=== PATIENT | female | born 1995 | race Caucasian/White ===

== ENCOUNTER 2017-04-03 13:30 | Inpatient (IN) | payer OTHER ==
[2017-04-03] MEDS ORDERED: Lidocaine 1% with EPINEPHrine 1:100,000 20 ML MDV ONE (13:38)
[2017-04-03] MEDS ORDERED: Bupivacaine 0.5%/EPINEPHrine 1:200,000 50 ML MDV ONE (13:38)
--- NOTE | 2017-04-03 14:02 | PCM.HP ---
H&P History of Present Illness - General Date of Service: 04/03/17 Source of Information: Patient History Limitations: Reports: No Limitations - History of Present Illness Initial Comments - Free Text/Narative: 21-year-old female presented to her primary care provider with a recent history of vaginal bleeding. For about a week she has had intermittent crampy abdominal discomfort as well as malaise and at times anorexia. She also had some loose watery stools. The pain ultimately migrated to her right lower quadrant where it 's worse with activity. A workup revealed leukocytosis and a CT scan of the abdomen and pelvis revealed imaging features consistent with acute appendicitis with a periappendiceal phlegmon. I was asked to see her in consultation for surgery. - Related Data Allergies/Adverse Reactions: Allergies Allergy/AdvReac Type Severity Reaction Status Date / Time No Known Allergies Allergy Verified 06/17/15 06:47 Home Medications: Home Meds Estradiol Cypionate [Depo-Estradiol] 25 mg IM Q3M 06/17/15 [History] Ondansetron [Zofran] 4 mg BUCCAL Q6H PRN #5 tab 06/17/15 [Rx] oxyCODONE HCl/Acetaminophen [Percocet 5-325 mg Tablet] 1 - 2 each PO Q4H PRN # 24 tablet 06/17/15 [Rx] valACYclovir [Valtrex] 1,000 mg PO BID #6 tab 06/17/15 [Rx] Past Medical History - Past Health History Medical/Surgical History: Denies Medical/Surgical History Social & Family History - Tobacco Use Smoking Status *Q: Never Smoker Second Hand Smoke Exposure: No - Recreational Drug Use Recreational Drug Use: No H&P Review of Systems - Review of Systems: Review Of Systems: ROS reveals no pertinent complaints other than HPI. Exam - Exam Exam: See Below - Vital Signs Weight: 92.079 kg - Exam General: Alert, Oriented, Cooperative HEENT: EOMI, Hearing Intact Neck: Supple, Trachea Midline Lungs: Clear to Auscultation, Normal Respiratory Effort Cardiovascular: Regular Rate, Regular Rhythm, Normal S1, Normal S2 GI/Abdominal Exam: Tender (Female) Exam: Deferred Rectal (Female) Exam: Deferred Back Exam: Normal Inspection Extremities: Normal Inspection Skin: Warm Psychiatric: Alert, Normal Affect, Normal Mood *Q Meaningful Use (ADM) - VTE *Q VTE Criteria *Q: - Stroke *Q Stroke Criteria *Q: - AMI *Q AMI Criteria *Q: Problem List Initiated/Reviewed/Updated: Yes Orders Last 24hrs: Active Orders 24 hr Category Date Time Status Schedule Procedure [COMM] Routine Oth 04/03/17 13:41 Ordered Assessment/Plan Comment:: imp: appendicitis/early phlegmon plan: Laparoscopic possible open appendectomy. If the inflammatory changes are procedurally difficult than I plan to abort the planned procedure and admit her for IV antibiotics. If there is an abscess and I plan on placing a drain and continuing with IV antibiotics. This was explained to her in detail. 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
--- NOTE | 2017-04-03 14:05 | PCM.PREANE ---
Preanesthetic Assessment - Procedure Proposed Procedure: Laparoscopic appendectomy - Anesthesia/Transfusion/Family Hx Anesthesia History: Prior Anesthesia Without Reaction Family History of Anesthesia Reaction: No Transfusion History: No Prior Transfusion(s) - Review of Systems General: No Symptoms Pulmonary: No Symptoms Cardiovascular: No Symptoms Gastrointestinal: No Symptoms Neurological: No Symptoms Other: Reports: None - Physical Assessment NPO Status Date: 04/03/17 NPO Status Time: 12:00 (CT dye ) Pulse: 111 O2 Sat by Pulse Oximetry: 98 Respiratory Rate: 20 Blood Pressure: 126/69 Temperature: 100.0 C Height: 1.68 m Weight: 92.079 kg ASA Class: 2 Mental Status: Alert & Oriented x3 Airway Class: Mallampati = 2 Dentition: Reports: Normal Dentition Thyro-Mental Finger Breadths: 3 Mouth Opening Finger Breadths: 3 ROM/Head Extension: Full Lungs: Clear to Auscultation, Normal Respiratory Effort Cardiovascular: Regular Rate, Regular Rhythm - Allergies Allergies/Adverse Reactions: Allergies Allergy/AdvReac Type Severity Reaction Status Date / Time No Known Allergies Allergy Verified 06/17/15 06:47 - Blood Blood Available: No Product(s) Available: None - Anesthesia Plan Pre-Op Medication Ordered: None - Acknowledgements Anesthesia Type Planned: General Anesthesia Pt an Appropriate Candidate for the Planned Anesthesia: Yes Alternatives and Risks of Anesthesia Discussed w Pt/Guardian: Yes Pt/Guardian Understands and Agrees with Anesthesia Plan: Yes PreAnesthesia Questionnaire - Past Health History Medical/Surgical History: Denies Medical/Surgical History - SUBSTANCE USE Smoking Status *Q: Never Smoker Second Hand Smoke Exposure: No Recreational Drug Use History: No - HOME MEDS Home Medications: Home Meds Estradiol Cypionate [Depo-Estradiol] 25 mg IM Q3M 06/17/15 [History] Ondansetron [Zofran] 4 mg BUCCAL Q6H PRN #5 tab 06/17/15 [Rx] oxyCODONE HCl/Acetaminophen [Percocet 5-325 mg Tablet] 1 - 2 each PO Q4H PRN # 24 tablet 06/17/15 [Rx] valACYclovir [Valtrex] 1,000 mg PO BID #6 tab 06/17/15 [Rx] - CURRENT (IN HOUSE) MEDS Current Meds: Current Medications Discontinued Medications Bupivacaine HCl/Epinephrine Bitart (Marcaine 0.5%/Epinephrine 1:200,000) Confirm Administered Dose 50 ml .ROUTE .STK-MED ONE Stop: 04/03/17 13:39 Dexamethasone (Dexamethasone) Confirm Administered Dose 20 mg .ROUTE .STK-MED ONE Stop: 04/03/17 14:11 Fentanyl (Sublimaze) Confirm Administered Dose 250 mcg .ROUTE .STK-MED ONE Stop: 04/03/17 14:08 Lidocaine HCl (Xylocaine-Mpf 1%) Confirm Administered Dose 4 mls @ as directed .ROUTE .STK-MED ONE Stop: 04/03/17 14:11 Lidocaine/Epinephrine (Xylocaine 1% With Epinephrine 1:100,000) Confirm Administered Dose 20 ml .ROUTE .STK-MED ONE Stop: 04/03/17 13:39 Midazolam HCl (Versed 1 Mg/Ml) Confirm Administered Dose 2 mg .ROUTE .STK-MED ONE Stop: 04/03/17 14:08 Ondansetron HCl (Zofran) Confirm Administered Dose 4 mg .ROUTE .STK-MED ONE Stop: 04/03/17 14:11 Propofol (Diprivan 20 Ml) Confirm Administered Dose 200 mg .ROUTE .STK-MED ONE Stop: 04/03/17 14:08 Rocuronium [place] (Zemuron) Confirm Administered Dose 50 mg .ROUTE .STK-MED ONE Stop: 04/03/17 14:11
[2017-04-03] MEDS ORDERED: Propofol 200 MG/20 ML SDV ONE (14:07)
[2017-04-03] MEDS ORDERED: Midazolam 1 MG/ML 2 ML SDV ONE (14:07)
[2017-04-03] MEDS ORDERED: fentaNYL 250 MCG/5 ML SDV ONE (14:07)
[2017-04-03] MEDS ORDERED: Rocuronium 50 MG/5 ML Vial ONE (14:10)
[2017-04-03] MEDS ORDERED: Ondansetron 4 MG/2 ML SDV ONE (14:10)
[2017-04-03] MEDS ORDERED: Lidocaine 1% 4 ML ONE (14:10)
[2017-04-03] MEDS ORDERED: Dexamethasone 4 MG/ML 5 ML MDV ONE (14:10)
[2017-04-03] MEDS ORDERED: Sodium Chloride 0.9% 10 ML Syringe FLUSH PRN (14:24)
[2017-04-03] MEDS ORDERED: Lidocaine 1%/Sod Bicarbonate in NS 8.4% 1 ML Syringe IV PRN (14:24)
[2017-04-03] MEDS ORDERED: Lactated Ringers 1,000 ML IV SCH ×2 (14:30)
[2017-04-03] MEDS ORDERED: HYDROmorphone 1 MG/ML Syringe ONE (15:04)
[2017-04-03] MEDS ORDERED: fentaNYL 100 MCG/2 ML SDV IVPUSH PRN (15:23)
[2017-04-03] MEDS ORDERED: Meperidine PF 50 MG/ML Syringe IVPUSH PRN (15:23)
[2017-04-03] MEDS ORDERED: diphenhydrAMINE 50 MG/ML SDV IVPUSH PRN (15:23)
[2017-04-03] MEDS ORDERED: Ondansetron 4 MG/2 ML SDV IVPUSH PRN ×2 (15:23→15:54)
[2017-04-03] MEDS ORDERED: Neostigmine Methylsulfate 1 MG/ML 5 ML Syringe ONE (15:48)
[2017-04-03] MEDS ORDERED: Acetaminophen/oxyCODONE 325-5 MG Tab PO PRN (15:54)
--- NOTE | 2017-04-03 15:54 | PCM.OPNOTE ---
- General Post-Op/Procedure Note Date of Surgery/Procedure: 04/03/17 Operative Procedure(s): Laparoscopic appendectomy Findings: Phlegmon chronic inflammatory changes densely adherent omentum to the wall of the body of the appendix and cecum. No perforation. No fecal spillage. No pus seen. Pre Op Diagnosis: Subacute appendicitis with phlegmon Post-Op Diagnosis: Same Anesthesia Technique: General ET Tube, Local Primary Surgeon: Mukund Trejo Pathology: Appendix EBL in mLs: 2 Complications: None Condition: Stable Free Text/Narrative:: After adequate general endotracheal tube anesthesia was obtained the patient's abdomen was prepped and draped sterilely for a laparoscopic appendectomy. After local analgesia was given above the umbilicus a 15 blade was used to make an incision through the skin and then into the subcutaneous tissues. The incision was deepened with scissors down to the midline. A 15 blade was used to make a 12 mm incision through the linea alba. I then inserted a 12 mm camera port then obtained pneumoperitoneum with CO2. A 5 mm working port was placed in the suprapubic region and one in the left lower quadrant. Exploration revealed the findings above. I used the sucker dissection technique to separate the adherent structures from the body and base of the appendix. Once the base was identified I made a window in the appendiceal mesentery with scissors and then fired the linear cutting stapler across the base of the appendix. I then fired 2 loads across the appendiceal mesentery. I irrigated out the right upper and lower quadrants along with the pelvis with 2 L of saline. I decannulated the abdomen under direct vision and there was no bleeding from the port sites. The camera port was closed with a [id number] Vicryl suture. The subcutaneous tissues and skin were closed with Vicryl as well. She tolerated the procedure well and there were no complications. Remote Advisor photographs were taken for the patient and for the medical record.
[2017-04-03] MEDS ORDERED: Ketorolac 30 MG/ML SDV ONE (15:58)
--- NOTE | 2017-04-03 15:58 | PCM.POSTAN ---
POST ANESTHESIA ASSESSMENT - MENTAL STATUS Mental Status: Alert, Oriented - VITAL SIGNS Pulse Rate: 128 SaO2: 98 Resp Rate: 15 Blood Pressure: 124/70 Temperature: 37.5 C - RESPIRATORY Respiratory Status: Respiratory Rate WNL, Airway Patent, O2 Saturation Stable - CARDIOVASCULAR CV Status: Pulse Rate WNL, Blood Pressure Stable - GASTROINTESTINAL GI Status: No Symptoms - PAIN Pain Score: 0 - POST OP HYDRATION Hydration Status: Adequate & Stable
[2017-04-03] MEDS ORDERED: HYDROmorphone 0.5 MG/0.5 ML Syringe IVPUSH PRN (16:25)
[2017-04-03] MEDS: Ketorolac 15 MG/ML SDV IVPUSH PRN (18:12)
[2017-04-03] MEDS: Sodium Chloride 0.9% 1,000 ML IV SCH (18:12)
[2017-04-03] MEDS ORDERED: cefOXitin 2 GM in Sodium Chloride 0.9% 100 ML IV SCH (20:00)
[2017-04-03] MEDS: CEFOXITIN IV SCH (20:24)
[2017-04-03] MEDS: [UNRECOGNIZED DRUG - OTHER] IV SCH (20:24)
[2017-04-04] MEDS: Ketorolac 15 MG/ML SDV IVPUSH PRN (00:05)
[2017-04-04] MEDS: HYDROmorphone 0.5 MG/0.5 ML Syringe IVPUSH PRN ×5 (00:11→21:11)
[2017-04-04] MEDS: CEFOXITIN IV SCH (01:57)
[2017-04-04] MEDS: Sodium Chloride 0.9% 1,000 ML IV SCH (01:57)
[2017-04-04] MEDS: [UNRECOGNIZED DRUG - OTHER] IV SCH (01:57)
--- NOTE | 2017-04-04 07:52 | PCM48HPAN ---
Post Anesthesia Note - EVALUATION WITHIN 48HRS OF ANESTHETIC Vital Signs in Normal Range: Yes Patient Participated in Evaluation: Yes Respiratory Function Stable: Yes Airway Patent: Yes Cardiovascular Function Stable: Yes Hydration Status Stable: Yes Pain Control Satisfactory: Yes Nausea and Vomiting Control Satisfactory: Yes (eating breakfast) Mental Status Recovered: Yes
[2017-04-04] MEDS ORDERED: Sodium Chloride 0.9% 10 ML Syringe FLUSH PRN (07:59)
--- NOTE | 2017-04-04 07:59 | PCM.SURGPN ---
- General Info Date of Service: 04/04/17 POD#: 1 Functional Status: Reports: Pain Controlled, Tolerating Diet, Ambulating, Urinating - Patient Data Vitals - Most Recent: Last Vital Signs Temp 36.3 C 04/04/17 03:57 Pulse 65 04/04/17 03:57 Resp 14 04/04/17 03:57 BP 104/53 L 04/04/17 03:57 Pulse Ox 94 L 04/04/17 03:57 Weight - Most Recent: 94.982 kg I&O - Last 24 Hours: Intake & Output 04/03/17 04/04/17 04/04/17 22:59 06:59 14:59 Intake Total 1440 2900 Output Total 1300 Balance 1440 1600 Lab Results Last 24 Hrs: Laboratory Results - last 24 hr 04/04/17 Range/Units 06:25 WBC 21.45 H (3.98-10.04) K/mm3 RBC 4.32 (3.98-5.22) M/mm3 Hgb 12.7 (11.2-15.7) gm/L Hct 39.3 (34.1-44.9) % MCV 91.0 (79.4-94.8) fl MCH 29.4 (25.6-32.2) pg MCHC 32.3 (32.2-35.5) g/dl RDW Std Deviation 42.0 (36.4-46.3) fL Plt Count 221 (182-369) K/mm3 MPV 9.8 (9.4-12.3) fl Neut % (Auto) 86.0 H (34.0-71.1) % Lymph % (Auto) 6.3 L (19.3-51.7) % [place] % (Auto) 7.5 (4.7-12.5) % Eos % (Auto) 0 L (0.7-5.8) Baso % (Auto) 0.0 L (0.1-1.2) % Neut # (Auto) 18.43 H (1.56-6.13) K/mm3 Lymph # (Auto) 1.36 (1.18-3.74) K/mm3 [place] # (Auto) 1.61 H (0.24-0.36) K/mm3 Eos # (Auto) 0.00 L (0.04-0.36) K/mm3 Baso # (Auto) 0.00 L (0.01-0.08) K/mm3 Manual Slide Review Abnormal smear Med Orders - Current: Current Medications Diphenhydramine HCl (Benadryl) 25 mg IVPUSH Q6H PRN PRN Reason: Pruritis Hydromorphone HCl (Dilaudid) 0.5 mg IVPUSH Q1H PRN PRN Reason: Pain (severe 7-10) Last Admin: 04/04/17 04:09 Dose: 0.5 mg Sodium Chloride (Normal Saline) 1,000 mls @ 125 mls/hr IV ASDIRECTED STELLA Last Admin: 04/04/17 01:57 Dose: 125 mls/hr Cefoxitin Sodium 2 gm/ Premix 50 mls @ 100 mls/hr IV Q6H [facility] Ketorolac Tromethamine (Toradol) 15 mg IVPUSH Q6H PRN PRN Reason: Pain Stop: 04/04/17 10:01 Last Admin: 04/04/17 00:05 Dose: 15 mg Ondansetron HCl (Zofran) 4 mg IVPUSH Q6H PRN PRN Reason: Nausea/Vomiting Oxycodone/Acetaminophen (Percocet 325-5 Mg) 1 tab PO Q4H PRN PRN Reason: Pain (moderate 4-6) Last Admin: 04/03/17 20:24 Dose: 1 tab Discontinued Medications Bupivacaine HCl/Epinephrine Bitart (Marcaine 0.5%/Epinephrine 1:200,000) Confirm Administered Dose 50 ml .ROUTE .STK-MED ONE Stop: 04/03/17 13:39 Last Admin: 04/03/17 14:46 Dose: 15 ml Dexamethasone (Dexamethasone) Confirm Administered Dose 20 mg .ROUTE .STK-MED ONE Stop: 04/03/17 14:11 Fentanyl (Sublimaze) Confirm Administered Dose 250 mcg .ROUTE .STK-MED ONE Stop: 04/03/17 14:08 Fentanyl (Sublimaze) 50 mcg IVPUSH Q5M PRN PRN Reason: Pain Stop: 04/03/17 15:24 Glycopyrrolate () Confirm Administered Dose 1 mg .ROUTE .STK-MED ONE Stop: 04/03/17 15:49 Hydromorphone HCl (Dilaudid) Confirm Administered Dose 1 mg .ROUTE .STK-MED ONE Stop: 04/03/17 15:05 Hydromorphone HCl (Dilaudid) 0.5 mg IVPUSH Q15M PRN PRN Reason: Pain (severe 7-10) Stop: 04/03/17 16:26 Lidocaine HCl (Xylocaine-Mpf 1%) Confirm Administered Dose 4 mls @ as directed .ROUTE .STK-MED ONE Stop: 04/03/17 14:11 Lactated Ringer's (Ringers, Lactated) 1,000 mls @ 125 mls/hr IV ASDIRECTED [facility] Last Admin: 04/03/17 14:15 Dose: 125 mls/hr Lactated Ringer's (Ringers, Lactated) 1,000 mls @ 125 mls/hr IV ASDIRECTED [facility] Cefoxitin Sodium (Mefoxin In Dextrose,Iso-Osm 2 Gm/50 Ml) Confirm Administered Dose 50 mls @ as directed .ROUTE .STK-MED ONE Stop: 04/03/17 14:39 Premix 1 bag/ Cefoxitin Sodium 50 mls @ 100 mls/hr IV Q6H [facility] Last Admin: 04/04/17 01:57 Dose: 100 mls/hr Ketorolac Tromethamine (Toradol) Confirm Administered Dose 30 mg .ROUTE .STK- MED ONE Stop: 04/03/17 15:59 Lidocaine/Epinephrine (Xylocaine 1% With Epinephrine 1:100,000) Confirm Administered Dose 20 ml .ROUTE .STK-MED ONE Stop: 04/03/17 13:39 Last Admin: 04/03/17 14:46 Dose: 15 ml Lidocaine/Sodium Bicarbonate (Buffered Lidocaine 1% In Ns 8.4%) 0.25 ml IV ONETIME PRN PRN Reason: Prior to IV Start Stop: 04/03/17 23:59 Meperidine HCl (Demerol) 12.5 mg IVPUSH ONETIME PRN PRN Reason: Shivering Stop: 04/03/17 23:00 Midazolam HCl (Versed 1 Mg/Ml) Confirm Administered Dose 2 mg .ROUTE .STK-MED ONE Stop: 04/03/17 14:08 Neostigmine Methylsulfate (Neostigmine) Confirm Administered Dose 5 mg .ROUTE .STK-MED ONE Stop: 04/03/17 15:49 Ondansetron HCl (Zofran) Confirm Administered Dose 4 mg .ROUTE .STK-MED ONE Stop: 04/03/17 14:11 Ondansetron HCl (Zofran) 4 mg IVPUSH ONETIME PRN PRN Reason: Nausea/Vomiting Stop: 04/03/17 23:00 Propofol (Diprivan 20 Ml) Confirm Administered Dose 200 mg .ROUTE .STK-MED ONE Stop: 04/03/17 14:08 Rocuronium [place] (Zemuron) Confirm Administered Dose 50 mg .ROUTE .STK-MED ONE Stop: 04/03/17 14:11 Sodium Chloride (Saline Flush) 10 ml FLUSH ASDIRECTED PRN PRN Reason: Keep Vein Open Stop: 04/03/17 23:59 - Exam Wound/Incisions: Dressing Dry and Intact - Problem List Review Problem List Initiated/Reviewed/Updated: Yes - My Orders Last 24 Hours: Active Orders 24 hr Category Date Time Status Patient Status [ADT] Routine ADT 04/03/17 15:55 Active Ambulate [RC] TIDMEALS Care 04/03/17 15:54 Active Communication Order [RC] ROUTINE Care 04/03/17 15:23 Inactive Cooling Warming Measures [RC] ASDIRECTED Care 04/03/17 15:23 Active Head of Bed Elevation [RC] QSHIFT Care 04/03/17 15:56 Active Notify Provider [RC] ASDIRECTED Care 04/03/17 15:23 Active Oxygen Therapy [RC] ASDIRECTED Care 04/03/17 15:23 Inactive Oxygen Therapy [RC] PRN Care 04/03/17 15:55 Active Peripheral IV Care [RC] . DIRECTED Care 04/03/17 14:24 Inactive Pulse Oximetry [RC] ASDIRECTED Care 04/03/17 15:23 Active RT Incentive Spirometry [RC] ASDIRECTED Care 04/03/17 15:54 Active Up With Assistance [RC] ASDIRECTED Care 04/03/17 15:54 Active Up ad Natalie [RC] ASDIRECTED Care 04/03/17 15:54 Active Up to Chair [RC] ASDIRECTED Care 04/03/17 15:54 Active Vital Signs [RC] Q4HR Care 04/03/17 15:55 Active Regular Diet [DIET] Diet 04/03/17 Dinner Active Acetaminophen/oxyCODONE [Percocet 325-5 MG] Med 04/03/17 15:54 Active 1 tab PO Q4H PRN HYDROmorphone [Dilaudid] Med 04/03/17 15:54 Active 0.5 mg IVPUSH Q1H PRN Ketorolac [Toradol] Med 04/03/17 15:54 Active 15 mg IVPUSH Q6H PRN Ondansetron [Zofran] Med 04/03/17 15:54 Active 4 mg IVPUSH Q6H PRN Sodium Chloride 0.9% [Normal Saline] 1,000 ml Med 04/03/17 16:00 Active IV ASDIRECTED cefOXitin [Mefoxin in Dextrose,Iso-Osm 2 GM/50 ML] 2 gm Med 04/04/17 08:00 Active Premix Bag 1 bag IV Q6H diphenhydrAMINE [Benadryl] Med 04/03/17 15:23 Active 25 mg IVPUSH Q6H PRN Medication Administration Instruction [OM.PC] Routine Oth 04/03/17 14:24 Ordered Peripheral IV Insertion Adult [OM.PC] Routine Oth 04/03/17 14:24 Ordered Schedule Procedure [COMM] Routine Oth 04/03/17 13:41 Ordered Resuscitation Status Routine Resus Stat 04/03/17 15:54 Ordered Medication Orders Diphenhydramine HCl (Benadryl) 25 mg IVPUSH Q6H PRN PRN Reason: Pruritis Hydromorphone HCl (Dilaudid) 0.5 mg IVPUSH Q1H PRN PRN Reason: Pain (severe 7-10) Last Admin: 04/04/17 04:09 Dose: 0.5 mg Admin: 04/04/17 00:11 Dose: 0.5 mg Sodium Chloride (Normal Saline) 1,000 mls @ 125 mls/hr IV ASDIRECTED STELLA Last Admin: 04/04/17 01:57 Dose: 125 mls/hr Infusion: 04/04/17 01:57 Dose: 125 mls/hr Admin: 04/03/17 18:12 Dose: 125 mls/hr Cefoxitin Sodium 2 gm/ Premix 50 mls @ 100 mls/hr IV Q6H [facility] Ketorolac Tromethamine (Toradol) 15 mg IVPUSH Q6H PRN PRN Reason: Pain Stop: 04/04/17 10:01 Last Admin: 04/04/17 00:05 Dose: 15 mg Admin: 04/03/17 18:12 Dose: 15 mg Ondansetron HCl (Zofran) 4 mg IVPUSH Q6H PRN PRN Reason: Nausea/Vomiting Oxycodone/Acetaminophen (Percocet 325-5 Mg) 1 tab PO Q4H PRN PRN Reason: Pain (moderate 4-6) Last Admin: 04/03/17 20:24 Dose: 1 tab - Assessment Assessment (Free Text/Narrative):: Doing well. White count elevated as expected. - Plan Plan (Free Text/Narrative):: We'll need to continue IV antibiotics as planned.
[2017-04-04] MEDS: cefOXitin 2 GM in Premix Bag 1 BAG IV SCH ×3 (08:35→20:22)
[2017-04-05] MEDS: cefOXitin 2 GM in Premix Bag 1 BAG IV SCH ×4 (01:38→20:31)
[2017-04-05] MEDS: HYDROmorphone 0.5 MG/0.5 ML Syringe IVPUSH PRN (02:22)
[2017-04-05] MEDS ORDERED: Magnesium Hydroxide 400 MG/5 ML Susp 30 ML Cup PO ONE (08:00)
--- NOTE | 2017-04-05 09:35 | PCM.SURGPN ---
- General Info Date of Service: 04/05/17 Functional Status: Reports: Pain Controlled, Tolerating Diet, Ambulating, Urinating - Patient Data Vitals - Most Recent: Last Vital Signs Temp 36.3 C 04/05/17 07:48 Pulse 59 L 04/05/17 07:48 Resp 20 04/05/17 07:48 BP 111/47 L 04/05/17 07:48 Pulse Ox 99 04/05/17 07:48 Weight - Most Recent: 95.844 kg I&O - Last 24 Hours: Intake & Output 04/04/17 04/05/17 04/05/17 22:59 06:59 14:59 Intake Total 770 600 Output Total 1950 2100 Balance -1180 -1500 Med Orders - Current: Current Medications Diphenhydramine HCl (Benadryl) 25 mg IVPUSH Q6H PRN PRN Reason: Pruritis Hydromorphone HCl (Dilaudid) 0.5 mg IVPUSH Q1H PRN PRN Reason: Pain (severe 7-10) Last Admin: 04/05/17 02:22 Dose: 0.5 mg Cefoxitin Sodium 2 gm/ Premix 50 mls @ 100 mls/hr IV Q6H [facility] Last Admin: 04/05/17 08:06 Dose: 100 mls/hr Ondansetron HCl (Zofran) 4 mg IVPUSH Q6H PRN PRN Reason: Nausea/Vomiting Oxycodone/Acetaminophen (Percocet 325-5 Mg) 1 tab PO Q4H PRN PRN Reason: Pain (moderate 4-6) Last Admin: 04/03/17 20:24 Dose: 1 tab Sodium Chloride (Saline Flush) 10 ml FLUSH ASDIRECTED PRN PRN Reason: Keep Vein Open Discontinued Medications Bupivacaine HCl/Epinephrine Bitart (Marc[place] 0.5%/Epinephrine 1:200,000) Confirm Administered Dose 50 ml .ROUTE .STK-MED ONE Stop: 04/03/17 13:39 Last Admin: 04/03/17 14:46 Dose: 15 ml Dexamethasone (Dexamethasone) Confirm Administered Dose 20 mg .ROUTE .STK-MED ONE Stop: 04/03/17 14:11 Fentanyl (Sublimaze) Confirm Administered Dose 250 mcg .ROUTE .STK-MED ONE Stop: 04/03/17 14:08 Fentanyl (Sublimaze) 50 mcg IVPUSH Q5M PRN PRN Reason: Pain Stop: 04/03/17 15:24 Glycopyrrolate () Confirm Administered Dose 1 mg .ROUTE .STK-MED ONE Stop: 04/03/17 15:49 Hydromorphone HCl (Dilaudid) Confirm Administered Dose 1 mg .ROUTE .STK-MED ONE Stop: 04/03/17 15:05 Hydromorphone HCl (Dilaudid) 0.5 mg IVPUSH Q15M PRN PRN Reason: Pain (severe 7-10) Stop: 04/03/17 16:26 Lidocaine HCl (Xylocaine-Mpf 1%) Confirm Administered Dose 4 mls @ as directed .ROUTE .STK-MED ONE Stop: 04/03/17 14:11 Lactated Ringer's (Ringers, Lactated) 1,000 mls [facility] Admin: 04/03/17 14:15 Dose: 125 mls/hr Lactated Ringer's (Ringers, Lactated) 1,000 mls @ 125 [facility]ls[facility] Cefoxitin Sodium (Mefoxin In Dextrose,Iso-Osm 2 Gm/50 Ml) Confirm Administered Dose 50 mls @ as directed .ROUTE .STK-MED ONE Stop: 04/03/17 14:39 Sodium Chloride (Normal Saline) 1,000 mls @ 125 [facility] Last Admin: 04/04/17 01:57 Dose: 125 mls/hr Premix 1 bag/ Cefoxitin Sodium 50 mls @ 100 mls/hr IV Q6H [facility] Last Admin: 04/04/17 01:57 Dose: 100 mls/hr Ketorolac Tromethamine (Toradol) Confirm Administered Dose 30 mg .ROUTE .STK- MED ONE Stop: 04/03/17 15:59 Ketorolac Tromethamine (Toradol) 15 mg IVPUSH Q6H PRN PRN Reason: Pain Stop: 04/04/17 10:01 Last Admin: 04/04/17 00:05 Dose: 15 mg Lidocaine/Epinephrine (Xylocaine 1% With Epinephrine 1:100,000) Confirm Administered Dose 20 ml .ROUTE .STK-MED ONE Stop: 04/03/17 13:39 Last Admin: 04/03/17 14:46 Dose: 15 ml Lidocaine/Sodium Bicarbonate (Buffered Lidocaine 1% In Ns 8.4%) 0.25 ml IV ONETIME PRN PRN Reason: Prior to IV Start Stop: 04/03/17 23:59 Magnesium Hydroxide (Milk Of Magnesia) 30 ml PO ONETIME ONE Stop: 04/05/17 08:01 Last Admin: 04/05/17 08:09 Dose: Not Given Meperidine HCl (Demerol) 12.5 mg IVPUSH ONETIME PRN PRN Reason: Shivering Stop: 04/03/17 23:00 Midazolam HCl (Versed 1 Mg/Ml) Confirm Administered Dose 2 mg .ROUTE .STK-MED ONE Stop: 04/03/17 14:08 Neostigmine Methylsulfate (Neostigmine) Confirm Administered Dose 5 mg .ROUTE .STK-MED ONE Stop: 04/03/17 15:49 Ondansetron HCl (Zofran) Confirm Administered Dose 4 mg .ROUTE .STK-MED ONE Stop: 04/03/17 14:11 Ondansetron HCl (Zofran) 4 mg IVPUSH ONETIME PRN PRN Reason: Nausea/Vomiting Stop: 04/03/17 23:00 Propofol (Diprivan 20 Ml) Confirm Administered Dose 200 mg .ROUTE .STK-MED ONE Stop: 04/03/17 14:08 Rocuronium [place] (Zemuron) Confirm Administered Dose 50 mg .ROUTE .STK-MED ONE Stop: 04/03/17 14:11 Sodium Chloride (Saline Flush) 10 ml FLUSH ASDIRECTED PRN PRN Reason: Keep Vein Open Stop: 04/03/17 23:59 - Exam Wound/Incisions: Dressing Dry and Intact - Problem List Review Problem List Initiated/Reviewed/Updated: Yes - My Orders Last 24 Hours: Active Orders 24 hr Category Date Time Status Antiembolic Devices [RC] PER UNIT ROUTINE Care 04/04/17 09:26 Active May Shower [RC] ASDIRECTED Care 04/05/17 09:26 Active HORACE Hose [Antiembolic Hose] [OM.PC] Routine Oth 04/04/17 09:26 Ordered Medication Orders Diphenhydramine HCl (Benadryl) 25 mg IVPUSH Q6H PRN PRN Reason: Pruritis Hydromorphone HCl (Dilaudid) 0.5 mg IVPUSH Q1H PRN PRN Reason: Pain (severe 7-10) Last Admin: 04/05/17 02:22 Dose: 0.5 mg Admin: 04/04/17 21:11 Dose: 0.5 mg Admin: 04/04/17 13:56 Dose: 0.5 mg Admin: 04/04/17 08:40 Dose: 0.5 mg Admin: 04/04/17 04:09 Dose: 0.5 mg Admin: 04/04/17 00:11 Dose: 0.5 mg Cefoxitin Sodium 2 gm/ Premix 50 mls @ 100 mls/hr IV Q6H [facility] Last Admin: 04/05/17 08:06 Dose: 100 mls/hr Infusion: 04/05/17 02:08 Dose: 100 mls/hr Admin: 04/05/17 01:38 Dose: 100 mls/hr Infusion: 04/04/17 20:52 Dose: 100 mls/hr Admin: 04/04/17 20:22 Dose: 100 mls/hr Infusion: 04/04/17 14:00 Dose: 100 mls/hr Admin: 04/04/17 13:30 Dose: 100 mls/hr Infusion: 04/04/17 09:05 Dose: 100 mls/hr Admin: 04/04/17 08:35 Dose: 100 mls/hr Ondansetron HCl (Zofran) 4 mg IVPUSH Q6H PRN PRN Reason: Nausea/Vomiting Oxycodone/Acetaminophen (Percocet 325-5 Mg) 1 tab PO Q4H PRN PRN Reason: Pain (moderate 4-6) Last Admin: 04/03/17 20:24 Dose: 1 tab Sodium Chloride (Saline Flush) 10 ml FLUSH ASDIRECTED PRN PRN Reason: Keep Vein Open - Assessment Assessment (Free Text/Narrative):: doing well - Plan Plan (Free Text/Narrative):: Shower today. CBC in a.m..
[2017-04-06] MEDS: cefOXitin 2 GM in Premix Bag 1 BAG IV SCH ×4 (01:52→20:53)
--- NOTE | 2017-04-06 08:02 | PCM.SURGPN ---
- General Info Date of Service: 04/06/17 Functional Status: Reports: Pain Controlled, Tolerating Diet, Ambulating, Urinating - Patient Data Vitals - Most Recent: Last Vital Signs Temp 36.4 C 04/06/17 03:53 Pulse 57 L 04/06/17 03:53 Resp 15 04/06/17 03:53 BP 111/53 L 04/06/17 03:53 Pulse Ox 97 04/06/17 03:53 Weight - Most Recent: 94.982 kg I&O - Last 24 Hours: Intake & Output 04/05/17 04/06/17 04/06/17 22:59 06:59 14:59 Intake Total 1700 525 Output Total 1800 2500 Balance - -1974 Lab Results Last 24 Hrs: Laboratory Results - last 24 hr 04/06/17 Range/Units 06:07 WBC 8.29 (3.98-10.04) K/mm3 RBC 4.11 (3.98-5.22) M/mm3 Hgb 12.1 (11.2-15.7) gm/L Hct 37.8 (34.1-44.9) % MCV 92.0 (79.4-94.8) fl MCH 29.4 (25.6-32.2) pg MCHC 32.0 L (32.2-35.5) g/dl RDW Std Deviation 42.5 (36.4-46.3) fL Plt Count 267 (182-369) K/mm3 MPV 10.1 (9.4-12.3) fl Neut % (Auto) 53.1 (34.0-71.1) % Lymph % (Auto) 35.6 (19.3-51.7) % [place] % (Auto) 7.6 (4.7-12.5) % Eos % (Auto) 3.4 (0.7-5.8) Baso % (Auto) 0.2 (0.1-1.2) % Neut # (Auto) 4.40 (1.56-6.13) K/mm3 Lymph # (Auto) 2.95 (1.18-3.74) K/mm3 [place] # (Auto) 0.63 H (0.24-0.36) K/mm3 Eos # (Auto) 0.28 (0.04-0.36) K/mm3 Baso # (Auto) 0.02 (0.01-0.08) K/mm3 Med Orders - Current: Current Medications Diphenhydramine HCl (Benadryl) 25 mg IVPUSH Q6H PRN PRN Reason: Pruritis Hydromorphone HCl (Dilaudid) 0.5 mg IVPUSH Q1H PRN PRN Reason: Pain (severe 7-10) Last Admin: 04/05/17 02:22 Dose: 0.5 mg Cefoxitin Sodium 2 gm/ Premix 50 mls @ 100 mls/hr IV Q6H STELLA Last Admin: 04/06/17 01:52 Dose: 100 mls/hr Ondansetron HCl (Zofran) 4 mg IVPUSH Q6H PRN PRN Reason: Nausea/Vomiting Oxycodone/Acetaminophen (Percocet 325-5 Mg) 1 tab PO Q4H PRN PRN Reason: Pain (moderate 4-6) Last Admin: 04/03/17 20:24 Dose: 1 tab Sodium Chloride (Saline Flush) 10 ml FLUSH ASDIRECTED PRN PRN Reason: Keep Vein Open Discontinued Medications Bupivacaine HCl/Epinephrine Bitart (Marcaine 0.5%/Epinephrine 1:200,000) Confirm Administered Dose 50 ml .ROUTE .STK-MED ONE Stop: 04/03/17 13:39 Last Admin: 04/03/17 14:46 Dose: 15 ml Dexamethasone (Dexamethasone) Confirm Administered Dose 20 mg .ROUTE .STK-MED ONE Stop: 04/03/17 14:11 Fentanyl (Sublimaze) Confirm Administered Dose 250 mcg .ROUTE .STK-MED ONE Stop: 04/03/17 14:08 Fentanyl (Sublimaze) 50 mcg IVPUSH Q5M PRN PRN Reason: Pain Stop: 04/03/17 15:24 Glycopyrrolate () Confirm Administered Dose 1 mg .ROUTE .STK-MED ONE Stop: 04/03/17 15:49 Hydromorphone HCl (Dilaudid) Confirm Administered Dose 1 mg .ROUTE .STK-MED ONE Stop: 04/03/17 15:05 Hydromorphone HCl (Dilaudid) 0.5 mg IVPUSH Q15M PRN PRN Reason: Pain (severe 7-10) Stop: 04/03/17 16:26 Lidocaine HCl (Xylocaine-Mpf 1%) Confirm Administered Dose 4 mls @ as directed .ROUTE .ST-MED ONE Stop: 04/03/17 14:11 Lactated Ringer's (Ringers, Lactated) 1,000 mls @ 125 mls/hr IV ASDIRECTED [facility] Last Admin: 04/03/17 14:15 Dose: 125 mls/hr Lactated Ringer's (Ringers, Lactated) 1,000 mls @ 125 mls/hr IV ASDIRECTED [facility] Cefoxitin Sodium (Mefoxin In Dextrose,Iso-Osm 2 Gm/50 Ml) Confirm Administered Dose 50 mls @ as directed .ROUTE .[facility]-MED ONE Stop: 04/03/17 14:39 Sodium Chloride (Normal Saline) 1,000 mls @ 125 mls/hr IV ASDIRECTED [facility] Last Admin: 04/04/17 01:57 Dose: 125 mls/hr Premix 1 bag/ Cefoxitin Sodium 50 mls @ 100 mls/hr IV Q6H [facility] Last Admin: 04/04/17 01:57 Dose: 100 mls/hr Ketorolac Tromethamine (Toradol) Confirm Administered Dose 30 mg .ROUTE .[facility]- MED ONE Stop: 04/03/17 15:59 Ketorolac Tromethamine (Toradol) 15 mg IVPUSH Q6H PRN PRN Reason: Pain Stop: 04/04/17 10:01 Last Admin: 04/04/17 00:05 Dose: 15 mg Lidocaine/Epinephrine (Xylocaine 1% With Epinephrine 1:100,000) Confirm Administered Dose 20 ml .ROUTE .[facility]-MED ONE Stop: 04/03/17 13:39 Last Admin: 04/03/17 14:46 Dose: 15 ml Lidocaine/Sodium Bicarbonate (Buffered Lidocaine 1% In Ns 8.4%) 0.25 ml IV ONETIME PRN PRN Reason: Prior to IV Start Stop: 04/03/17 23:59 Magnesium Hydroxide (Milk Of Magnesia) 30 ml PO ONETIME ONE Stop: 04/05/17 08:01 Last Admin: 04/05/17 08:09 Dose: Not Given Meperidine HCl (Demerol) 12.5 mg IVPUSH ONETIME PRN PRN Reason: Shivering Stop: 04/03/17 23:00 Midazolam HCl (Versed 1 Mg/Ml) Confirm Administered Dose 2 mg .ROUTE .STK-MED ONE Stop: 04/03/17 14:08 Neostigmine Methylsulfate (Neostigmine) Confirm Administered Dose 5 mg .ROUTE .STK-MED ONE Stop: 04/03/17 15:49 Ondansetron HCl (Zofran) Confirm Administered Dose 4 mg .ROUTE .STK-MED ONE Stop: 04/03/17 14:11 Ondansetron HCl (Zofran) 4 mg IVPUSH ONETIME PRN PRN Reason: Nausea/Vomiting Stop: 04/03/17 23:00 Propofol (Diprivan 20 Ml) Confirm Administered Dose 200 mg .ROUTE .STK-MED ONE Stop: 04/03/17 14:08 Rocuronium [place] (Zemuron) Confirm Administered Dose 50 mg .ROUTE .STK-MED ONE Stop: 04/03/17 14:11 Sodium Chloride (Saline Flush) 10 ml FLUSH ASDIRECTED PRN PRN Reason: Keep Vein Open Stop: 04/03/17 23:59 - Exam Wound/Incisions: Dressing Dry and Intact - Problem List Review Problem List Initiated/Reviewed/Updated: Yes - My Orders Last 24 Hours: Active Orders 24 hr Category Date Time Status May Shower [RC] ASDIRECTED Care 04/05/17 09:26 Active Medication Orders Diphenhydramine HCl (Benadryl) 25 mg IVPUSH Q6H PRN PRN Reason: Pruritis Hydromorphone HCl (Dilaudid) 0.5 mg IVPUSH Q1H PRN PRN Reason: Pain (severe 7-10) Last Admin: 04/05/17 02:22 Dose: 0.5 mg Admin: 04/04/17 21:11 Dose: 0.5 mg Admin: 04/04/17 13:56 Dose: 0.5 mg Admin: 04/04/17 08:40 Dose: 0.5 mg Admin: 04/04/17 04:09 Dose: 0.5 mg Admin: 04/04/17 00:11 Dose: 0.5 mg Cefoxitin Sodium 2 gm/ Premix 50 mls @ 100 mls/hr IV Q6H STELLA Last Admin: 04/06/17 01:52 Dose: 100 mls/hr Infusion: 04/05/17 21:01 Dose: 100 mls/hr Admin: 04/05/17 20:31 Dose: 100 mls/hr Infusion: 04/05/17 15:08 Dose: 100 mls/hr Admin: 04/05/17 14:38 Dose: 100 mls/hr Infusion: 04/05/17 08:36 Dose: 100 mls/hr Admin: 04/05/17 08:06 Dose: 100 mls/hr Infusion: 04/05/17 02:08 Dose: 100 mls/hr Admin: 04/05/17 01:38 Dose: 100 mls/hr Infusion: 04/04/17 20:52 Dose: 100 mls/hr Admin: 04/04/17 20:22 Dose: 100 mls/hr Infusion: 04/04/17 14:00 Dose: 100 mls/hr Admin: 04/04/17 13:30 Dose: 100 mls/hr Infusion: 04/04/17 09:05 Dose: 100 mls/hr Admin: 04/04/17 08:35 Dose: 100 mls/hr Ondansetron HCl (Zofran) 4 mg IVPUSH Q6H PRN PRN Reason: Nausea/Vomiting Oxycodone/Acetaminophen (Percocet 325-5 Mg) 1 tab PO Q4H PRN PRN Reason: Pain (moderate 4-6) Last Admin: 04/03/17 20:24 Dose: 1 tab Sodium Chloride (Saline Flush) 10 ml FLUSH ASDIRECTED PRN PRN Reason: Keep Vein Open - Assessment Assessment (Free Text/Narrative):: White count is normal. - Plan Plan (Free Text/Narrative):: Discharge in a.m.
[2017-04-07] MEDS: cefOXitin 2 GM in Premix Bag 1 BAG IV SCH ×3 (01:34→14:22)
--- NOTE | 2017-04-07 07:25 | PCM.SURGPN ---
- General Info Date of Service: 04/07/17 Functional Status: Reports: Pain Controlled, Tolerating Diet, Ambulating, Urinating - Review of Systems Pulmonary: Reports: No Symptoms Cardiovascular: Reports: No Symptoms Gastrointestinal: Reports: No Symptoms - Patient Data Vitals - Most Recent: Last Vital Signs Temp 36.8 C 04/07/17 01:41 Pulse 60 04/07/17 01:41 Resp 16 04/07/17 01:41 BP 104/63 04/07/17 01:41 Pulse Ox 94 L 04/07/17 01:41 Weight - Most Recent: 93.485 kg I&O - Last 24 Hours: Intake & Output 04/06/17 04/07/17 04/07/17 22:59 06:59 14:59 Intake Total 770 950 Output Total 1000 1850 Balance -230 -900 Med Orders - Current: Current Medications Diphenhydramine HCl (Benadryl) 25 mg IVPUSH Q6H PRN PRN Reason: Pruritis Hydromorphone HCl (Dilaudid) 0.5 mg IVPUSH Q1H PRN PRN Reason: Pain (severe 7-10) Last Admin: 04/05/17 02:22 Dose: 0.5 mg Cefoxitin Sodium 2 gm/ Premix 50 mls @ 100 mls/hr IV Q6H STELLA Last Admin: 04/07/17 01:34 Dose: 100 mls/hr Ondansetron HCl (Zofran) 4 mg IVPUSH Q6H PRN PRN Reason: Nausea/Vomiting Oxycodone/Acetaminophen (Percocet 325-5 Mg) 1 tab PO Q4H PRN PRN Reason: Pain (moderate 4-6) Last Admin: 04/03/17 20:24 Dose: 1 tab Sodium Chloride (Saline Flush) 10 ml FLUSH ASDIRECTED PRN PRN Reason: Keep Vein Open Discontinued Medications Bupivacaine HCl/Epinephrine Bitart (Marcaine 0.5%/Epinephrine 1:200,000) Confirm Administered Dose 50 ml .ROUTE .STK-MED ONE Stop: 04/03/17 13:39 Last Admin: 04/03/17 14:46 Dose: 15 ml Dexamethasone (Dexamethasone) Confirm Administered Dose 20 mg .ROUTE .STK-MED ONE Stop: 04/03/17 14:11 Fentanyl (Sublimaze) Confirm Administered Dose 250 mcg .ROUTE .STK-MED ONE Stop: 04/03/17 14:08 Fentanyl (Sublimaze) 50 mcg IVPUSH Q5M PRN PRN Reason: Pain Stop: 04/03/17 15:24 Glycopyrrolate () Confirm Administered Dose 1 mg .ROUTE .STK-MED ONE Stop: 04/03/17 15:49 Hydromorphone HCl (Dilaudid) Confirm Administered Dose 1 mg .ROUTE .STK-MED ONE Stop: 04/03/17 15:05 Hydromorphone HCl (Dilaudid) 0.5 mg IVPUSH Q15M PRN PRN Reason: Pain (severe 7-10) Stop: 04/03/17 16:26 Lidocaine HCl (Xylocaine-Mpf 1%) Confirm Administered Dose 4 mls @ as directed .ROUTE .STK-MED ONE Stop: 04/03/17 14:11 Lactated Ringer's (Ringers, Lactated) 1,000 mls @ 125 mls/hr IV ASDIRECTED [facility] Last Admin: 04/03/17 14:15 Dose: 125 mls/hr Lactated Ringer's (Ringers, Lactated) 1,000 mls @ 125 mls/hr IV ASDIRECTED [facility] Cefoxitin Sodium (Mefoxin In Dextrose,Iso-Osm 2 Gm/50 Ml) Confirm Administered Dose 50 mls @ as directed .ROUTE .STK-MED ONE Stop: 04/03/17 14:39 Sodium Chloride (Normal Saline) 1,000 mls @ 125 mls/hr IV ASDIRECTED [facility] Last Admin: 04/04/17 01:57 Dose: 125 mls/hr Premix 1 bag/ Cefoxitin Sodium 50 mls @ 100 mls/hr IV Q6H [facility] Last Admin: 04/04/17 01:57 Dose: 100 mls/hr Ketorolac Tromethamine (Toradol) Confirm Administered Dose 30 mg .ROUTE .STK- MED ONE Stop: 04/03/17 15:59 Ketorolac Tromethamine (Toradol) 15 mg IVPUSH Q6H PRN PRN Reason: Pain Stop: 04/04/17 10:01 Last Admin: 04/04/17 00:05 Dose: 15 mg Lidocaine/Epinephrine (Xylocaine 1% With Epinephrine 1:100,000) Confirm Administered Dose 20 ml .ROUTE .STK-MED ONE Stop: 04/03/17 13:39 Last Admin: 04/03/17 14:46 Dose: 15 ml Lidocaine/Sodium Bicarbonate (Buffered Lidocaine 1% In Ns 8.4%) 0.25 ml IV ONETIME PRN PRN Reason: Prior to IV Start Stop: 04/03/17 23:59 Magnesium Hydroxide (Milk Of Magnesia) 30 ml PO ONETIME ONE Stop: 04/05/17 08:01 Last Admin: 04/05/17 08:09 Dose: Not Given Meperidine HCl (Demerol) 12.5 mg IVPUSH ONETIME PRN PRN Reason: Shivering Stop: 04/03/17 23:00 Midazolam HCl (Versed 1 Mg/Ml) Confirm Administered Dose 2 mg .ROUTE .STK-MED ONE Stop: 04/03/17 14:08 Neostigmine Methylsulfate (Neostigmine) Confirm Administered Dose 5 mg .ROUTE .STK-MED ONE Stop: 04/03/17 15:49 Ondansetron HCl (Zofran) Confirm Administered Dose 4 mg .ROUTE .STK-MED ONE Stop: 04/03/17 14:11 Ondansetron HCl (Zofran) 4 mg IVPUSH ONETIME PRN PRN Reason: Nausea/Vomiting Stop: 04/03/17 23:00 Propofol (Diprivan 20 Ml) Confirm Administered Dose 200 mg .ROUTE .STK-MED ONE Stop: 04/03/17 14:08 Rocuronium [place] (Zemuron) Confirm Administered Dose 50 mg .ROUTE .STK-MED ONE Stop: 04/03/17 14:11 Sodium Chloride (Saline Flush) 10 ml FLUSH ASDIRECTED PRN PRN Reason: Keep Vein Open Stop: 04/03/17 23:59 - Exam Wound/Incisions: Dressing Dry and Intact GI/Abdominal Exam: Soft, Non-Tender, No Distention - Problem List & Annotations (1) Phlegmon SNOMED Code(s): 142996719 Code(s): L02.91 - CUTANEOUS ABSCESS, UNSPECIFIED Status: Resolved Priority: High Current Visit: Yes - Problem List Review Problem List Initiated/Reviewed/Updated: Yes - My Orders Last 24 Hours: Active Orders 24 hr Category Date Time Status Ready for Discharge [RC] PER UNIT ROUTINE Care 04/07/17 07:23 Ordered Medication Orders Diphenhydramine HCl (Benadryl) 25 mg IVPUSH Q6H PRN PRN Reason: Pruritis Hydromorphone HCl (Dilaudid) 0.5 mg IVPUSH Q1H PRN PRN Reason: Pain (severe 7-10) Last Admin: 04/05/17 02:22 Dose: 0.5 mg Admin: 04/04/17 21:11 Dose: 0.5 mg Admin: 04/04/17 13:56 Dose: 0.5 mg Admin: 04/04/17 08:40 Dose: 0.5 mg Admin: 04/04/17 04:09 Dose: 0.5 mg Admin: 04/04/17 00:11 Dose: 0.5 mg Cefoxitin Sodium 2 gm/ Premix 50 mls @ 100 mls/hr IV Q6H [facility]LLA Last Admin: 04/07/17 01:34 Dose: 100 mls/hr Infusion: 04/06/17 21:23 Dose: 100 mls/hr Admin: 04/06/17 20:53 Dose: 100 mls/hr Infusion: 04/06/17 14:41 Dose: 100 mls/hr Admin: 04/06/17 14:11 Dose: 100 mls/hr Infusion: 04/06/17 08:51 Dose: 100 mls/hr Admin: 04/06/17 08:21 Dose: 100 mls/hr Infusion: 04/06/17 02:22 Dose: 100 mls/hr Admin: 04/06/17 01:52 Dose: 100 mls/hr Infusion: 04/05/17 21:01 Dose: 100 mls/hr Admin: 04/05/17 20:31 Dose: 100 mls/hr Infusion: 04/05/17 15:08 Dose: 100 mls/hr Admin: 04/05/17 14:38 Dose: 100 mls/hr Infusion: 04/05/17 08:36 Dose: 100 mls/hr Admin: 04/05/17 08:06 Dose: 100 mls/hr Infusion: 04/05/17 02:08 Dose: 100 mls/hr Admin: 04/05/17 01:38 Dose: 100 mls/hr Infusion: 04/04/17 20:52 Dose: 100 mls/hr Admin: 04/04/17 20:22 Dose: 100 mls/hr Infusion: 04/04/17 14:00 Dose: 100 mls/hr Admin: 04/04/17 13:30 Dose: 100 mls/hr Infusion: 04/04/17 09:05 Dose: 100 mls/hr Admin: 04/04/17 08:35 Dose: 100 mls/hr Ondansetron HCl (Zofran) 4 mg IVPUSH Q6H PRN PRN Reason: Nausea/Vomiting Oxycodone/Acetaminophen (Percocet 325-5 Mg) 1 tab PO Q4H PRN PRN Reason: Pain (moderate 4-6) Last Admin: 04/03/17 20:24 Dose: 1 tab Sodium Chloride (Saline Flush) 10 ml FLUSH ASDIRECTED PRN PRN Reason: Keep Vein Open - Assessment Assessment (Free Text/Narrative):: Doing well. Discharge criteria satisfied. - Plan Plan (Free Text/Narrative):: Discharge today. I will continue antibiotics with Bactrim DS and Flagyl for 5 more days. Routine postoperative instructions were provided to the patient verbally and will be provided in writing.
[2017-04-07 12:51] VITALS: BP 109/65
== END 2017-04-07 12:35 | disposition home or self-care (01) | DRG 340 ==
LOC: JD.MS 13:30
PROVIDERS: ADMIT Surgery; ATTEND Surgery
PROC: 0DTJ4ZZ Resection of Appendix, Percutaneous Endoscopic Approach (ICD-10-PCS; principal; 2017-04-03)
DX: K35.3 Acute appendicitis with localized peritonitis (principal); Z11.3 Encounter for screening for infections with a predominantly sexual mode of transmission; N94.6 Dysmenorrhea, unspecified; N92.0 Excessive and frequent menstruation with regular cycle; R10.31 Right lower quadrant pain
CPT/HCPCS: 00840; 36415; 74177; 74177-26; 80053; 81001; 84443; 84703; 85025; 86140; 87491; 87591; A9270-GY; J0694; J1100; J1170; J1885; J2250; J2405; J2704; J2710; J3010; J7040; J7050; J7120; Q9967

== ENCOUNTER 2019-11-06 12:47 | Inpatient (IN) | payer BC ==
[2019-11-06] MEDS ORDERED: Ampicillin 2 GM in Sodium Chloride 0.9% 100 ML IV ONE (13:51)
[2019-11-06] MEDS ORDERED: Nalbuphine 10 MG/ML Syringe IVPUSH PRN (13:51)
[2019-11-06] MEDS ORDERED: Sodium Chloride 0.9% 10 ML Syringe FLUSH PRN (13:51)
[2019-11-06] MEDS ORDERED: Acetaminophen 325 MG Tab PO PRN (13:51)
[2019-11-06] MEDS ORDERED: Oxytocin/Lactated Ringers 10 UNIT/1,000 ML BAG IV SCH ×2 (14:00→14:30)
[2019-11-06] MEDS: Lactated Ringers 1,000 ML IV SCH ×4 (14:08→22:01)
--- NOTE | 2019-11-06 14:53 | PCM.LDHP ---
L&D History of Present Illness - General Date of Service: 11/06/19 Admit Problem/Dx: Patient Status Order with Admit Dx/Problem 11/06/19 13:51 Patient Status [ADT] Routine Admission Diagnosis/Problem Admission Diagnosis/Problem Rupture of membranes with clear amniotic fluid Source of Information: Patient History Limitations: Reports: No Limitations - History of Present Illness Introduction:: Dina Serrano (Alexandra) is a 24 year old at 39 weeks 2 days (ARNIE 11/11/2019 ) by LMP consistent with 11-week ultrasound who presents after she was found to have spontaneous rupture membranes in the clinic. She had presented to the clinic earlier today with complaints of increased amounts of vaginal discharge. On initial evaluation there is no pooling or fluid coming from the cervical opening. An AmniSure test was performed and it came back positive. Based on this results she was felt to have spontaneous rupture of membranes and was recommended to present to labor and delivery for augmentation of labor and treatment with antibiotics due to her GBS positive status. She was having irregular contractions and cramping that had been increasing since her appointment on 11/04/2019. She reports good movement. Associated Symptoms: Reports: vaginal discharge, vaginal fluid, moderate amount. Denies: vaginal bleeding Present Illness Comments:: Dina Serrano (Alexandra) is a 24 year old female at 39 weeks 2 days (ARNIE ) by LMP consistent with a 11-week ultrasound. She has had routine care with myself starting at 11 weeks gestational age. Her was overall uncomplicated. There was concern that she had an infant that was small for gestational age at her 20-week ultrasound and seen again at her 24- week ultrasound. On evaluation by maternal- medicine the infant was normally grown. Patient was diagnosed with influenza B on 06/25/2019 and was treated with Tamiflu at that time. The remainder of her course was overall uncomplicated. She received influenza vaccine on 07/23/2019. She received Tdap on 08/21/2019. Her GBS swab was positive on 10/16/2019. This is complicated by: * GBS positive on swab on 10/16/2019, plan for treatment with antibiotics in labor * Primigravida with obesity and was started on aspirin 81 mg daily to reduce risk for developing preeclampsia * Influenza B infection that was diagnosed on 06/25/2019 and treated with Tamiflu * Hip and pelvic pain throughout the felt to be related to history of injuries. She reports that it had improved with use of chiropractic and physical therapy care : Current Last Pap smear was done in 2017 with plans to have repeat Pap smear after delivery Denies history of sexually transmitted infections labs Blood type: O+ Antibody screen: Negative First trimester hematocrit/hemoglobin: 43.8%/14.4 on 04/24/2019 Platelets: 310 on 04/24/2019 Urine culture: Mixed isabel suggestive of contamination Rubella status: Immune Hepatitis B surface antigen: Negative RPR: Negative HIV: Negative Gonorrhea: Negative Chlamydia: Negative Genetic testing: Normal Prequel testing performed on 06/28/2019. Low risk for trisomy 13, 18 and 21. Normal sex chromosomes. Anatomy ultrasound: Normal anatomy ultrasound with any abnormalities, anterior placenta, 61st percentile at most recent ultrasound at 35 weeks gestational age One hour glucose tolerance test: 113 Second trimester hematocrit/hemoglobin: 38.9%/12.0 on 08/23/2019 Platelets: 320 on 08/23/2019 GBS status: Positive on swab - Related Data Allergies/Adverse Reactions: Allergies Allergy/AdvReac Type Severity Reaction Status Date / Time No Known Allergies Allergy Verified 06/17/15 06:47 Home Medications: Home Meds Sulfamethoxazole/Trimethoprim [Bactrim Ds Tablet] 1 each PO BID #10 tablet 04/07 [Rx] metroNIDAZOLE [Flagyl] 500 mg PO Q8H #15 tablet 04/07/17 [Rx] Past Medical History - Past Health History Medical/Surgical History: Denies Medical/Surgical History HEENT History: Reports: Other (See Below) Other HEENT History: bruna benítez POTLINE MONITOR History: Reports: : 1 Para: 0 - Infectious Disease History Infectious Disease History: Reports: Chicken Pox - Past Surgical History HEENT Surgical History: Reports: Oral Surgery, Other (See Below) Other HEENT Surgeries/Procedures: wisdom teeth removal Musculoskeletal Surgical History: Reports: Arthroscopic Procedure Other Musculoskeletal Surgeries/Procedures:: left knee x2 Social & Family History - Family History Endocrine/Metabolic: Reports: Diabetes, type II - Tobacco Use Smoking Status *Q: Never Smoker Second Hand Smoke Exposure: Yes - Tobacco Core Measures Tobacco Use/Smoking Within Last 30 Days: No Smokeless Tobacco Use in Last 30 Days: No - Caffeine Use Caffeine Use: Reports: Soda - Alcohol Use Alcohol Use History: No - Recreational Drug Use Recreational Drug Use: No - Living Situation & Occupation Living situation: Reports: , with Spouse Occupation: Employed H&P Review of Systems - Review of Systems: Review Of Systems: See Below General: Denies: Fever, Chills, Weakness, Fatigue HEENT: Denies: Headaches, Rhinitis, Post Nasal Drip, Sinus Congestion, Sore Throat, Visual Changes Pulmonary: Denies: Shortness of Breath, Wheezing, Pleuritic Chest Pain, Cough Cardiovascular: Denies: Chest Pain, Palpitations, Dyspnea on Exertion, Orthopnea Gastrointestinal: Denies: Abdominal Pain, Constipation, Diarrhea, Nausea, Vomiting Genitourinary: Denies: Dysuria, Frequency, Burning, Pain, Urgency Musculoskeletal: Reports: Back Pain (Hip and pubic symphysis pain related to previous injury and ) Skin: Denies: Rash, Lesions Psychiatric: Denies: Depression, Anxiety L&D Exam - Exam Exam: See Below - Vital Signs Vital Signs: Last Vital Signs Temp 98.4 C H 11/06/19 12:55 Pulse 119 H 11/06/19 12:55 Resp 20 11/06/19 12:55 BP 133/72 11/06/19 12:55 Pulse Ox Weight: 118.388 kg - OB Specific Contraction Duration (sec): 45-60 Contraction Frequency (min): 10-15 Contraction Intensity: Mild to Moderate Movement: Active Heart Tones: Present Heart Tones per Min: 150 (+15 x 15 accelerations, no decelerations) Heart Rate (FHR) Variability: Moderate (6-25 bmp) Presentation: Vertex Estimated Weight: 8-8.5 pounds by Lavell's - Valle Score Valle Score Cervix Position: Anterior Valle Score Consistency: Soft Valle Score Effacement: >80% (80%) Valle Score Dilation: 3-4 cm (3.5 cm) Valle Score Infant's Station: -3 Valle Score Total: 9 - Exam General: Alert, Oriented HEENT: Conjunctiva Clear, EOMI Neck: Supple, Trachea Midline Lungs: Clear to Auscultation, Normal Respiratory Effort Cardiovascular: Regular Rate, Regular Rhythm GI/Abdominal Exam: Soft, Non-Tender, No Distention, Other (Gravid). No: Guarding, Rigid, Rebound Genitourinary: Normal external exam Skin: Warm, Dry, Intact Psychiatric: Alert, Normal Affect, Normal Mood - Problem List (1) 39 weeks gestation of SNOMED Code(s): 04836393 ICD Code: Z3A.39 - 39 WEEKS GESTATION OF Status: Acute Current Visit: Yes (2) GBS (group B Streptococcus carrier), +RV culture, currently SNOMED Code(s): 4953737373256, [id number], [id number] ICD Code: O99.820 - STREPTOCOCCUS B CARRIER STATE COMPLICATING Status: Acute Current Visit: Yes (3) Obesity affecting SNOMED Code(s): 449563669755, 091172322527 ICD Code: O99.210 - OBESITY COMPLICATING , UNSPECIFIED TRIMESTER Status: Acute Current Visit: Yes Problem List Initiated/Reviewed/Updated: Yes Orders Last 24hrs: Active Orders 24 hr Category Date Time Status Patient Status [ADT] Routine ADT 11/06/19 13:51 Active Activity as Tolerated [RC] PFP Care 11/06/19 13:51 Active Communication Order [RC] ASDIRECTED Care 11/06/19 13:51 Active Heart Tones [RC] ASDIRECTED Care 11/06/19 13:52 Active Non Stress Test [RC] PER UNIT ROUTINE Care 11/06/19 13:51 Active Notify Provider Vital Signs [RC] PRN Care 11/06/19 13:53 Active Notify Provider [RC] PFP Care 11/06/19 13:51 Active Notify Provider [RC] PRN Care 11/06/19 13:51 Active Peripheral IV Care [RC] . DIRECTED Care 11/06/19 13:52 Active Pump Management, Intrathecal [RC] ASDIRECTED Care 11/06/19 13:52 Active Vital Signs [RC] PER UNIT ROUTINE Care 11/06/19 13:51 Active Regular Diet [DIET] Diet 11/06/19 Lunch Active CBC WITH AUTO DIFF [HEME] Routine Lab 11/06/19 14:09 Received RAPID PLASMA REAGIN,RPR [CHEM] Routine Lab 11/06/19 14:09 Received Acetaminophen [Tylenol] Med 11/06/19 13:51 Active 650 mg PO Q6H PRN Ampicillin 1 gm Med 11/06/19 18:00 Active Sodium Chloride 0.9% [Normal Saline] 100 ml IV Q4H Lactated Ringers [Ringers, Lactated] 1,000 ml Med 11/06/19 14:00 Active IV ASDIRECTED Nalbuphine [Nubain] Med 11/06/19 13:51 Active 10 mg IVPUSH Q2H PRN Oxytocin/Lactated Ringers [Pitocin in LR 10 Units/1,000 Med 11/06/19 14:00 Active ML] 10 unit in 1,000 ml IV .CONTINUOUS Oxytocin/Lactated Ringers [Pitocin in LR 10 Units/1,000 Med 11/06/19 14:30 Active ML] 10 unit in 1,000 ml IV TITRATE Sodium Chloride 0.9% [Saline Flush] Med 11/06/19 13:51 Active 10 ml FLUSH ASDIRECTED PRN Electronic Heart Tones Ext w TOCO [WOMSER] Oth 11/06/19 13:51 Ordered Routine Electronic Heart Tones Internal [WOMSER] Per Unit Ot 11/06/19 13:51 Ordered Routine Peripheral IV Insertion Adult [OM.PC] Routine Oth 11/06/19 13:51 Ordered Resuscitation Status Routine Resus Stat 11/06/19 13:51 Ordered Medication Orders Acetaminophen (Tylenol) 650 mg PO Q6H PRN PRN Reason: Pain (Mild 1-3) and fever Ampicillin Sodium 1 gm/ Sodium (Chloride) 100 mls @ 200 mls/hr IV Q4H STELLA Lactated Ringer's (Ringers, Lactated) 1,000 mls @ 100 mls/hr IV ASDIRECTED STELLA Last Admin: 11/06/19 14:08 Dose: 100 mls/hr Oxytocin/Lactated Ringer's (Pitocin In Lr 10 Units/1,000 Ml) 10 unit in 1,000 mls @ 100 mls/hr IV .CONTINUOUS STELLA Oxytocin/Lactated Ringer's (Pitocin In Lr 10 Units/1,000 Ml) 10 unit in 1,000 mls @ 12 mls/hr IV TITRATE STELLA; Protocol Last Admin: 11/06/19 14:23 Dose: 2 munits/min, 12 mls/hr Nalbuphine HCl (Nubain) 10 mg IVPUSH Q2H PRN PRN Reason: Pain Sodium Chloride (Saline Flush) 10 ml FLUSH ASDIRECTED PRN PRN Reason: Keep Vein Open Assessment/Plan Comment:: Refer to observation for spontaneous rupture of membranes Start Pitocin for augmentation of labor due to contractions being irregular Continuous monitoring Place IV and have Lactated Ringer's at 125 ml/hr May have small amounts of regular diet Activity as tolerated May have epidural as desired Plans to breast-feed after delivery Start on ampicillin 2 g now and have 1 g every 4 hours after for GBS prophylaxis Anticipate vaginal delivery unless otherwise indicated Shukri Arias MD 2:58 PM 11/06/2019
[2019-11-06] MEDS: Ampicillin 1 GM in Sodium Chloride 0.9% 100 ML IV SCH ×2 (18:03→22:00)
--- NOTE | 2019-11-06 19:28 | PCM.PNLD ---
Labor Progress Note - VS & Meds Vital Signs: Last Vital Signs Temp 36.9 C 11/06/19 13:15 Pulse 119 H 11/06/19 13:15 Resp 20 11/06/19 13:15 BP 133/72 11/06/19 13:15 Pulse Ox Active Medications: Current Medications Acetaminophen (Tylenol) 650 mg PO Q6H PRN PRN Reason: Pain (Mild 1-3) and fever Ampicillin Sodium 1 gm/ Sodium (Chloride) 100 mls @ 200 mls/hr IV Q4H STELLA Last Admin: 11/06/19 18:03 Dose: 200 mls/hr Lactated Ringer's (Ringers, Lactated) 1,000 mls @ 100 mls/hr IV ASDIRECTED STELLA Last Admin: 11/06/19 14:08 Dose: 100 mls/hr Oxytocin/Lactated Ringer's (Pitocin In Lr 10 Units/1,000 Ml) 10 unit in 1,000 mls @ 100 mls/hr IV .CONTINUOUS STELLA Oxytocin/Lactated Ringer's (Pitocin In Lr 10 Units/1,000 Ml) 10 unit in 1,000 mls @ 12 mls/hr IV TITRATE STELLA; Protocol Last Titration: 11/06/19 16:00 Dose: 6 munits/min, 36 mls/hr Nalbuphine HCl (Nubain) 10 mg IVPUSH Q2H PRN PRN Reason: Pain Sodium Chloride (Saline Flush) 10 ml FLUSH ASDIRECTED PRN PRN Reason: Keep Vein Open Discontinued Medications Ampicillin Sodium 2 gm/ Sodium (Chloride) 100 mls @ 200 mls/hr IV ONETIME ONE Stop: 11/06/19 14:20 Last Admin: 11/06/19 14:08 Dose: 200 mls/hr Oxytocin 20 unit/ Lactated (Ringer's) 1,002 mls @ 6.01 mls/hr IV TITRATE STELLA; Protocol - Uterine Contractions Contraction Frequency (min): 2-6 Contraction Duration (sec): 45-60 Contraction Intensity: Mild to Moderate Uterine Resting Tone: Soft - Monitoring Monitor Mode: Doppler/Auscultation Heart Rate (FHR) Baseline: 140 Heart Rate (FHR) Per Doppler: 140 Heart Rate (FHR) Variability: Moderate (6-25 bmp) Accelerations: Present, 15x15 Decelerations: None Strip Review: Category I - Vaginal Exam Dilation (cm): 4 Effacement (Percent): 90 Station: -3 Cervical Position: Anterior Sterile Vaginal Exam Performed By: Shukri Arias Vaginal Exam Comment: Artificial rupture membranes with [place] of fore bag with return of clear fluid. Mother and infant tolerated procedure without difficulty. - Labor Progress (Free Text) Labor Progress: Artificial rupture of membranes of forebag with return of small amount of clear fluid. Mother and tolerated without difficulty Patient with slow progress at this time and is currently at 4 cm dilated Continue Pitocin for augmentation of labor Continue ampicillin for GBS prophylaxis Routine vitals Patient may have epidural as desired for anesthesia Anticipate vaginal delivery unless otherwise indicated Shukri Arias MD 7:28 PM 11/06/2019
[2019-11-06] MEDS ORDERED: ePHEDrine 50 MG/ML SDV IVPUSH PRN (20:48)
[2019-11-06] MEDS ORDERED: fentaNYL 100 MCG/2 ML SDV EPIDUR PRN (20:48)
[2019-11-06] MEDS ORDERED: Ondansetron 4 MG/2 ML SDV IVPUSH PRN (20:48)
--- NOTE | 2019-11-06 20:50 | PCM.PREANE ---
Preanesthetic Assessment - Procedure Proposed Procedure: Epidural - Anesthesia/Transfusion/Family Hx Anesthesia History: Prior Anesthesia Without Reaction Type of Anesthesia Reaction: Other (see below) (History of waking up in the middle of general anesthetics/ quick wake-ups!) Family History of Anesthesia Reaction: No Transfusion History: No Prior Transfusion(s) Intubation History: Unknown - Review of Systems General: No Symptoms Pulmonary: No Symptoms (Sore throat, patient contributes it to sleeping with window open.) Cardiovascular: No Symptoms (On ASA for pre-eclampsia prevention), Palpitations (with ) Gastrointestinal: No Symptoms (GERD) Neurological: No Symptoms, Numbness (left leg on occasion) Other: Reports: None - Physical Assessment NPO Status Date: 11/06/19 NPO Status Time: 18:30 Vital Signs: Last Vital Signs Temp 36.9 C 11/06/19 13:15 Pulse 119 H 11/06/19 13:15 Resp 20 11/06/19 13:15 BP 133/72 11/06/19 13:15 Pulse Ox Height: 1.75 m Weight: 118.388 kg ASA Class: 2 Mental Status: Alert & Oriented x3 Airway Class: Mallampati = 2 Dentition: Reports: Normal Dentition, Caries Thyro-Mental Finger Breadths: 3 Mouth Opening Finger Breadths: 3 ROM/Head Extension: Full Lungs: Clear to Auscultation, Normal Respiratory Effort Cardiovascular: Regular Rate, Regular Rhythm, No Murmurs - Lab Values: Laboratory Last Values WBC 10.16 K/mm3 (3.98-10.04) H 11/06/19 14:09 RBC 4.40 M/mm3 (3.98-5.22) 11/06/19 14:09 Hgb 13.0 gm/dl (11.2-15.7) 11/06/19 14:09 Hct 40.4 % (34.1-44.9) 11/06/19 14:09 MCV 91.8 fl (79.4-94.8) 11/06/19 14:09 MCH 29.5 pg (25.6-32.2) 11/06/19 14:09 MCHC 32.2 g/dl (32.2-35.5) 11/06/19 14:09 RDW Std Deviation 45.6 fL (36.4-46.3) 11/06/19 14:09 Plt Count 246 K/mm3 (182-369) 11/06/19 14:09 MPV 10.2 fl (9.4-12.3) 11/06/19 14:09 Neut % (Auto) 73.3 % (34.0-71.1) H 11/06/19 14:09 Lymph % (Auto) 18.9 % (19.3-51.7) L 11/06/19 14:09 [place] % (Auto) 6.4 % (4.7-12.5) 11/06/19 14:09 Eos % (Auto) 0.7 (0.7-5.8) 11/06/19 14:09 Baso % (Auto) 0.2 % (0.1-1.2) 11/06/19 14:09 Neut # (Auto) 7.45 K/mm3 (1.56-6.13) H 11/06/19 14:09 Lymph # (Auto) 1.92 K/mm3 (1.18-3.74) 11/06/19 14:09 [place] # (Auto) 0.65 K/mm3 (0.24-0.36) H 11/06/19 14:09 Eos # (Auto) 0.07 K/mm3 (0.04-0.36) 11/06/19 14:09 Baso # (Auto) 0.02 K/mm3 (0.01-0.08) 11/06/19 14:09 RPR Non-reactive (NONREACTIVE) 11/06/19 14:09 Above labs reviewed and noted and within acceptable ranges to proceed with epidural. - Allergies Allergies/Adverse Reactions: Allergies Allergy/AdvReac Type Severity Reaction Status Date / Time No Known Allergies Allergy Verified 06/17/15 06:47 - Anesthesia Plan Pre-Op Medication Ordered: None - Acknowledgements Anesthesia Type Planned: Epidural Pt an Appropriate Candidate for the Planned Anesthesia: Yes Alternatives and Risks of Anesthesia Discussed w Pt/Guardian: Yes Pt/Guardian Understands and Agrees with Anesthesia Plan: Yes PreAnesthesia Questionnaire - Past Health History Medical/Surgical History: Denies Medical/Surgical History HEENT History: Reports: Other (See Below) Other HEENT History: lasik sx HERB DIGGER History: Reports: - Infectious Disease History Infectious Disease History: Reports: Chicken Pox - Past Surgical History HEENT Surgical History: Reports: Oral Surgery, Other (See Below) Other HEENT Surgeries/Procedures: wisdom teeth removal Musculoskeletal Surgical History: Reports: Arthroscopic Procedure Other Musculoskeletal Surgeries/Procedures:: left knee x2 - SUBSTANCE USE Smoking Status *Q: Never Smoker Second Hand Smoke Exposure: Yes Recreational Drug Use History: No - HOME MEDS Home Medications: Home Meds Aspirin [Lo-Dose Aspirin EC] 81 mg PO DAILY 11/06/19 [History] Doxylamine Succinate [Unisom] 25 mg PO DAILY PRN 11/06/19 [History] Lansoprazole [Prevacid] 15 mg PO DAILY 11/06/19 [History] Mv-Mn/Iron/FA/Herbal/Digestive [ One Tablet] 1 tab PO DAILY 11/06/19 [ History] - CURRENT (IN HOUSE) MEDS Current Meds: Current Medications Acetaminophen (Tylenol) 650 mg PO Q6H PRN PRN Reason: Pain (Mild 1-3) and fever Ampicillin Sodium 1 gm/ Sodium (Chloride) 100 mls @ 200 mls/hr IV Q4H STELLA Last Admin: 11/06/19 18:03 Dose: 200 mls/hr Lactated Ringer's (Ringers, Lactated) 1,000 mls @ 100 mls/hr IV ASDIRECTED STELLA Last Admin: 11/06/19 20:15 Dose: 999 mls/hr Oxytocin/Lactated Ringer's (Pitocin In Lr 10 Units/1,000 Ml) 10 unit in 1,000 mls @ 100 mls/hr IV .CONTINUOUS STELLA Oxytocin/Lactated Ringer's (Pitocin In Lr 10 Units/1,000 Ml) 10 unit in 1,000 mls @ 12 mls/hr IV TITRATE STELLA; Protocol Last Titration: 11/06/19 20:18 Dose: 6 munits/min, 36 mls/hr Nalbuphine HCl (Nubain) 10 mg IVPUSH Q2H PRN PRN Reason: Pain Last Admin: 11/06/19 20:19 Dose: 10 mg Sodium Chloride (Saline Flush) 10 ml FLUSH ASDIRECTED PRN PRN Reason: Keep Vein Open Discontinued Medications Ampicillin Sodium 2 gm/ Sodium (Chloride) 100 mls @ 200 mls/hr IV ONETIME ONE Stop: 11/06/19 14:20 Last Admin: 11/06/19 14:08 Dose: 200 mls/hr Oxytocin 20 unit/ Lactated (Ringer's) 1,002 mls @ 6.01 mls/hr IV TITRATE STELLA; Protocol
[2019-11-06] MEDS ORDERED: Bupivacaine/fentaNYL/NS 100 ML Bag EPIDUR SCH (21:00)
[2019-11-06] MEDS ORDERED: Phenylephrine 1 MG in Sodium Chloride 0.9% 10 ML IV SCH (21:00)
--- NOTE | 2019-11-06 23:31 | PCM.PNLD ---
Labor Progress Note - VS & Meds Vital Signs: Last Vital Signs Temp 36.9 C 11/06/19 13:15 Pulse 119 H 11/06/19 13:15 Resp 20 11/06/19 13:15 BP 133/72 11/06/19 13:15 Pulse Ox Active Medications: Current Medications Acetaminophen (Tylenol) 650 mg PO Q6H PRN PRN Reason: Pain (Mild 1-3) and fever Ephedrine Sulfate (Ephedrine Sulfate) 5 mg IVPUSH ASDIRECTED PRN PRN Reason: Hypotension Fentanyl (Sublimaze) 100 mcg EPIDUR Q3H PRN PRN Reason: Pain Last Admin: 11/06/19 21:22 Dose: 100 mcg Fentanyl/Bupivacaine HCl (Fentanyl/Bupivacaine/Ns 2 Mcg-0.125% 100 Ml) 100 ml EPIDUR ASDIRECTED STELLA Last Admin: 11/06/19 21:04 Dose: 100 ml Ampicillin Sodium 1 gm/ Sodium (Chloride) 100 mls @ 200 mls/hr IV Q4H STELLA Last Admin: 11/06/19 22:00 Dose: 200 mls/hr Lactated Ringer's (Ringers, Lactated) 1,000 mls @ 100 mls/hr IV ASDIRECTED STELLA Last Admin: 11/06/19 22:01 Dose: 100 mls/hr Oxytocin/Lactated Ringer's (Pitocin In Lr 10 Units/1,000 Ml) 10 unit in 1,000 mls @ 100 mls/hr IV .CONTINUOUS STELLA Oxytocin/Lactated Ringer's (Pitocin In Lr 10 Units/1,000 Ml) 10 unit in 1,000 mls @ 12 mls/hr IV TITRATE STELLA; Protocol Last Titration: 11/06/19 22:26 Dose: 2 munits/min, 12 mls/hr Phenylephrine HCl 1 mg/ Sodium (Chloride) 10.1 mls @ 1 mls/sec IV TITRATE STELLA; Protocol Nalbuphine HCl (Nubain) 10 mg IVPUSH Q2H PRN PRN Reason: Pain Last Admin: 11/06/19 20:19 Dose: 10 mg Ondansetron HCl (Zofran) 4 mg IVPUSH ONETIME PRN PRN Reason: Nausea/Vomiting Sodium Chloride (Saline Flush) 10 ml FLUSH ASDIRECTED PRN PRN Reason: Keep Vein Open Discontinued Medications Ampicillin Sodium 2 gm/ Sodium (Chloride) 100 mls @ 200 mls/hr IV ONETIME ONE Stop: 11/06/19 14:20 Last Admin: 11/06/19 14:08 Dose: 200 mls/hr Oxytocin 20 unit/ Lactated (Ringer's) 1,002 mls @ 6.01 mls/hr IV TITRATE STELLA; Protocol - Uterine Contractions Contraction Frequency (min): 2-3 Contraction Duration (sec): 60-75 Contraction Intensity: Strong Uterine Resting Tone: Soft - Monitoring Monitor Mode: Doppler/Auscultation Heart Rate (FHR) Baseline: 135 Heart Rate (FHR) Per Doppler: 135 Heart Rate (FHR) Variability: Moderate (6-25 bmp) Accelerations: Present, 15x15 Decelerations: None, Early, Intermittent (<50% x 20 min) Strip Review: Category I - Vaginal Exam Dilation (cm): 8 Effacement (Percent): 100 Station: 1 Cervical Position: Anterior Sterile Vaginal Exam Performed By: Shukri Arias - Labor Progress (Free Text) Labor Progress: Patient making good progress at this time with cervix dilated 8 cm Continue Pitocin for augmentation of labor Continue ampicillin for GBS prophylaxis Patient with good pain relief following epidural Continue routine vitals Patient with several mild range blood pressures but seem to be occurring when she is having a contraction and a pain response. Do not suspect gestational hypertension or preeclampsia at this time. Anticipate vaginal delivery unless otherwise indicated Shukri Arias MD 11:30 PM 11/06/2019
[2019-11-07] MEDS ORDERED: Bupivacaine 0.25% 10 ML SDV ONE
[2019-11-07] MEDS: Calcium Carbonate 500 MG Tab.Chew PO PRN ×3 (00:26→05:55)
[2019-11-07] MEDS: Ampicillin 1 GM in Sodium Chloride 0.9% 100 ML IV SCH ×2 (02:07→05:56)
[2019-11-07] MEDS: Lactated Ringers 1,000 ML IV SCH (07:07)
[2019-11-07] MEDS ORDERED: Lidocaine 1% 50 ML MDV ONE (07:51)
[2019-11-07] MEDS ORDERED: Benzocaine/Menthol 20%-0.5% Spray 56 GM Canister TOP PRN (09:09)
[2019-11-07] MEDS ORDERED: Hydrocortisone Acetate 25 MG Supp RECTAL PRN (09:09)
[2019-11-07] MEDS ORDERED: Oxytocin/Lactated Ringers 10 UNIT/1,000 ML BAG IV SCH (09:09)
[2019-11-07] MEDS ORDERED: Magnesium Hydroxide 400 MG/5 ML Susp 30 ML Cup PO PRN (09:09)
--- NOTE | 2019-11-07 09:16 | PCM.DEL ---
L & D Note - General Info Date of Service: 11/07/19 Mother's Due Date: 11/11/19 - Delivery Note Labor: Augmented by ARM, Augmented by Oxytocin Delivery Outcome: Livebirth Delivery Method: Spontaneous Vaginal Delivery-Single Infant Delivery Mode: Vacuum Extraction Presentation: Direct Occiput Posterior Nuchal Cord: None Prep: Povidone-Iodine (Betadine Anesthesia Type: Epidural, Local Anesthetic: Lidocaine (Xylocaine) 1% Plain Local Anesthetic Volume: Other (20 mL) Amniotic Fluid Description: Clear Episiotomy Type: None Laceration: 2nd Degree (midline perineal, repaired with 3-0 Vicryl) Placenta: Spontaneous, Manual Removal (of small portions of retained amniotic sac) Cord: 3 Vessels Estimated Blood Loss: 400 Resuscitation Needed: No [place]: Bulb Syringe, Stimulated, Warmed, [place] Used Provider: Shukri Arias Score 1 min: 9 Score 5 min: 9 Second Stage Interventions: Reports: Pushing Effectively, Pushing, Pulls Own Legs Back, Pushing, Stirrups/Leg Supports Delivery Comments (Free Text/Narrative):: Stage I: Dina Serrano (Alexandra) was admitted for spontaneous rupture membranes with a positive AmniSure test from exam in the clinic. On admission her cervix was dilated to 3.5 cm. She was GBS positive and was started on ampicillin for GBS prophylaxis. She received a total of 5 doses prior to delivery. She was started on Pitocin for induction of labor. On evaluation she had a forebag noted and this was ruptured with an Amnih[place] with return of clear fluid. She was given an epidural for anesthesia. She progressed to complete and pushing Stage II: She was pushing for approximately 3 hours at which time she began to have decreased amount of maternal effort and felt like she was not able to complete delivery herself. She was counseled on her options including vacuum assisted vaginal delivery. She was counseled on the risks and benefits of a vacuum assisted delivery and she stated understanding. She desired to proceed with a vacuum-assisted vaginal delivery. The station was at +3. position was felt to be right occiput posterior. A boswell cup Kiwi type extractor was applied to the infant's head and care was taken to not incorporate any of the maternal vaginal tissue between the cup and the head. Suction was applied to a level of 550 mmHg. Traction was applied and over the course of 1 contraction the head was brought to +4 station. There was 1 pop off at this time. Decision was made to switch to a boswell type mechanical suction extractor. This was applied to the head and suction was applied to 600 mmHg. Over the course of 1 additional contraction and maternal pushing the head was able to be delivered. The vacuum extractor was applied for a total of 1 minute prior to delivery. There was 1 total pop-off during use of the vacuum extractor. On 11/07/2019 she had a vacuum-assisted vaginal delivery of a live female at 08:08. Apgars of 9 & 9. Weight of 3450 g (7 lbs 9.7 oz). Length of 21.5 inches. There was no nuchal cord. Infant was delivered in direct occiput posterior position. The cord was doubly clamped and cut by father the infant. Infant was placed on mother's abdomen. Stage III: She had a spontaneous delivery of a mostly intact placenta in [place] presentation. There was small portions of remaining amniotic sac on exam and these were removed manually and with ring forceps. On bimanual exam the entirety of the placenta and amniotic sac portions were felt to have been completely removed. Three vessel cord. She was given pitocin and fundal massage. She had a second-degree midline perineal laceration that was repaired with 3-0 Vicryl. The external anal sphincter was examined and noted to be intact without any injury to the muscle capsule. Mom and baby were stable to recovery. EBL of 400 mL. Shukri Arias MD 9:10 AM 11/07/2019 Vacuum Extractor Progress Note - Alternative Labor Strategies Considered Alternative Labor Strategies Considered:: Reports: Yes Strategies Considered:: Reports: Contraction Intensity Adequate, Empty Bladder, Rest Indications Considered:: Reports: Yes Indications:: Reports: Shortening of 2nd Stage for Maternal Benefit (Poor maternal expulsive efforts) Time Out:: Reports: Yes - Patient Prepared Patient Prepared:: Reports: Yes Informed Consent:: Reports: Verbal Risks: Reports: Yes Risks Include:: Reports: Laceration, Shoulder Dystocia, Maternal Injury Anesthesia/Analgesia Adequate:: Reports: Yes - Probability of Success High Probability of Success:: Reports: Yes Weight Estimated:: Reports: AGA Patient Diabetic:: Reports: No Pelvis Adequate:: Reports: Yes Position:: Right occiput posterior Asynclitic:: Reports: No Station:: +3 - Application Time Maximum Application Time & Number of Pop-Offs Predetermined:: Reports: Yes Maximum Pressure Maintained in [place] (cm Hg):: 600 Total Application Time (min): *max=20min: 1 Number of Times Cup Disengaged:: 1 Type of Vacuum Used:: Reports: Cup: Boswell type Vacuum Extraction: Successful - Exit Strategy Exit strategy available:: Reports: Yes and resuscitation teams readily available:: Reports: Yes - General Info Date of Service: 11/07/19 - Patient Data Vitals - Most Recent: Last Vital Signs Temp 36.9 C 11/06/19 13:15 Pulse 119 H 11/06/19 13:15 Resp 20 11/06/19 13:15 BP 133/72 11/06/19 13:15 Pulse Ox Weight - Most Recent: 118.388 kg I&O - Last 24 Hours: Intake & Output 11/06/19 11/07/19 11/07/19 22:59 06:59 14:59 Intake Total 240 4500 Output Total 375 400 Balance 240 -375 4100 Lab Results Last 24 Hours: Laboratory Results - last 24 hr 11/06/19 11/06/19 Range/Units 14:09 14:09 WBC 10.16 H (3.98-10.04) K/mm3 RBC 4.40 (3.98-5.22) M/mm3 Hgb 13.0 (11.2-15.7) gm/dl Hct 40.4 (34.1-44.9) % MCV 91.8 (79.4-94.8) fl MCH 29.5 (25.6-32.2) pg MCHC 32.2 (32.2-35.5) g/dl RDW Std Deviation 45.6 (36.4-46.3) fL Plt Count 246 (182-369) K/mm3 MPV 10.2 (9.4-12.3) fl Neut % (Auto) 73.3 H (34.0-71.1) % Lymph % (Auto) 18.9 L (19.3-51.7) % [place] % (Auto) 6.4 (4.7-12.5) % Eos % (Auto) 0.7 (0.7-5.8) Baso % (Auto) 0.2 (0.1-1.2) % Neut # (Auto) 7.45 H (1.56-6.13) K/mm3 Lymph # (Auto) 1.92 (1.18-3.74) K/mm3 [place] # (Auto) 0.65 H (0.24-0.36) K/mm3 Eos # (Auto) 0.07 (0.04-0.36) K/mm3 Baso # (Auto) 0.02 (0.01-0.08) K/mm3 RPR Non-reactive (NONREACTIVE) Med Orders - Current: Current Medications Acetaminophen (Tylenol) 650 mg PO Q6H PRN PRN Reason: mild pain or fever Benzocaine/Menthol (Dermoplast Pain Relief Beulah) 0 gm TOP ASDIRECTED PRN PRN Reason: Perineal Comfort Measure Docusate Sodium (Colace) 100 mg PO BID PRN PRN Reason: Constipation Hydrocortisone Acetate (Anucort-Hc) 25 mg RECTAL BID PRN PRN Reason: Hemorrhoid pain Oxytocin/Lactated Ringer's (Pitocin In Lr 10 Units/1,000 Ml) 10 unit in 1,000 mls @ 100 mls/hr IV TITRATE STELLA; Protocol Ibuprofen (Motrin) 600 mg PO Q6H PRN PRN Reason: Mild pain or fever Magnesium Hydroxide (Milk Of Magnesia) 30 ml PO BEDTIME PRN PRN Reason: Constipation Prenat Multivit/Morgan/Iron/Folic Ac ( Plus Iron) 1 each PO DAILY [facility] Maria De Jesus Reid (Tucks) 1 pad TOP ASDIRECTED PRN PRN Reason: Perineal Comfort Measure Discontinued Medications Acetaminophen (Tylenol) 650 mg PO Q6H PRN PRN Reason: Pain (Mild 1-3) and fever Calcium Carbonate/Glycine (Tums) 1,000 mg PO Q2H PRN PRN Reason: Indigestion Last Admin: 11/07/19 05:55 Dose: 1,000 mg Ephedrine Sulfate (Ephedrine Sulfate) 5 mg IVPUSH ASDIRECTED PRN PRN Reason: Hypotension Fentanyl (Sublimaze) 100 mcg EPIDUR Q3H PRN PRN Reason: Pain Last Admin: 11/06/19 21:22 Dose: 100 mcg Fentanyl/Bupivacaine HCl (Fentanyl/Bupivacaine/Ns 2 Mcg-0.125% 100 Ml) 100 ml EPIDUR ASDIRECTED [facility] Last Admin: 11/06/19 21:04 Dose: 100 ml Ampicillin Sodium 2 gm/ Sodium (Chloride) 100 mls @ 200 mls/hr IV ONETIME ONE Stop: 11/06/19 14:20 Last Admin: 11/06/19 14:08 Dose: 200 mls/hr Ampicillin Sodium 1 gm/ Sodium (Chloride) 100 mls @ 200 mls/hr IV Q4H STELLA Last Admin: 11/07/19 05:56 Dose: 200 mls/hr Lactated Ringer's (Ringers, Lactated) 1,000 mls @ 100 mls/hr IV ASDIRECTED STELLA Last Admin: 11/07/19 07:07 Dose: 100 mls/hr Oxytocin 20 unit/ Lactated (Ringer's) 1,002 mls @ 6.01 mls/hr IV TITRATE STELLA; Protocol Oxytocin/Lactated Ringer's (Pitocin In Lr 10 Units/1,000 Ml) 10 unit in 1,000 mls @ 100 mls/hr IV .CONTINUOUS STELLA Oxytocin/Lactated Ringer's (Pitocin In Lr 10 Units/1,000 Ml) 10 unit in 1,000 mls @ 12 mls/hr IV TITRATE STELLA; Protocol Last Titration: 11/07/19 05:15 Dose: 6 munits/min, 36 mls/hr Phenylephrine HCl 1 mg/ Sodium (Chloride) 10.1 mls @ 1 mls/sec IV TITRATE STELLA; Protocol Lidocaine HCl (Xylocaine 1%) Confirm Administered Dose 50 ml .ROUTE .STK-MED ONE Stop: 11/07/19 07:52 Nalbuphine HCl (Nubain) 10 mg IVPUSH Q2H PRN PRN Reason: Pain Last Admin: 11/06/19 20:19 Dose: 10 mg Ondansetron HCl (Zofran) 4 mg IVPUSH ONETIME PRN PRN Reason: Nausea/Vomiting Sodium Chloride (Saline Flush) 10 ml FLUSH ASDIRECTED PRN PRN Reason: Keep Vein Open - Problem List & Annotations (1) 39 weeks gestation of SNOMED Code(s): 85533029 Code(s): Z3A.39 - 39 WEEKS GESTATION OF Status: Acute Current Visit: Yes (2) GBS (group B Streptococcus carrier), +RV culture, currently SNOMED Code(s): 4606698433943, 007710827, 9553675332954 Code(s): O99.820 - STREPTOCOCCUS B CARRIER STATE COMPLICATING Status: Acute Current Visit: Yes (3) Obesity affecting SNOMED Code(s): 248937436041, 161829174153 Code(s): O99.210 - OBESITY COMPLICATING , UNSPECIFIED TRIMESTER Status: Acute Current Visit: Yes (4) Vaginal delivery SNOMED Code(s): 659837118 Code(s): O80 - ENCOUNTER FOR FULL-TERM UNCOMPLICATED DELIVERY Status: Acute Current Visit: Yes (5) Vacuum extractor delivery, delivered SNOMED Code(s): 356257146 Code(s): O66.5 - ATTEMPTED APPLICATION OF VACUUM EXTRACTOR AND FORCEPS Status: Acute Current Visit: Yes (6) Second degree perineal laceration during delivery SNOMED Code(s): 7738105 Code(s): O70.1 - SECOND DEGREE PERINEAL LACERATION DURING DELIVERY Status: Acute Current Visit: Yes - Problem List Review Problem List Initiated/Reviewed/Updated: Yes - My Orders Last 24 Hours: My Active Orders 11/06/19 13:51 Activity as Tolerated [RC] PFP Communication Order [RC] ASDIRECTED Notify Provider [RC] PFP Notify Provider [RC] PRN Resuscitation Status Routine 11/06/19 13:53 Notify Provider Vital Signs [RC] PRN 11/07/19 09:09 Patient Status [ADT] Routine Activity as Tolerated [RC] PER UNIT ROUTINE May Shower [RC] ASDIRECTED Notify Provider Vital Signs [RC] ASDIRECTED Vital Signs [RC] ASDIRECTED Acetaminophen [Tylenol] 650 mg PO Q6H PRN Benzocaine/Menthol [Dermoplast Pain Relief Beul[place]] See Dose Instructions TOP ASDIRECTED PRN Docusate Sodium [Colace] 100 mg PO BID PRN Hydrocortisone Acetate [Anucort-HC] 25 mg RECTAL BID PRN Ibuprofen [Motrin] 600 mg PO Q6H PRN Magnesium Hydroxide [Milk of Magnesia] 30 ml PO BEDTIME PRN Oxytocin/Lactated Ringers [Pitocin in LR 10 Units/1,000 ML] 10 unit in 1,000 ml IV TITRATE Vit with Ca/FA/Iron [ Plus Iron] 1 each PO DAILY witch Renetta [Tucks] 1 pad TOP ASDIRECTED PRN Assess Lochia [WOMSER] Per Unit Routine Assess Uterine Involution [WOMSER] Per Unit Routine Breast Pump [WOMSER] Per Unit Routine Heat Therapy [OM.PC] PRN Ice Therapy [OM.PC] Per Unit Routine Medication Administration Instruction [OM.PC] Routine Perineal Care [OM.PC] Per Unit Routine Peripheral IV Discontinue [OM.PC] Routine Sitz Bath [OM.PC] Per Unit Routine 11/07/19 Breakfast Regular Diet [DIET] 11/08/19 09:09 Heat Therapy [OM.PC] PRN - Assessment Assessment:: Admit to inpatient following vacuum-assisted vaginal delivery Continue Pitocin per unit protocol following delivery of placenta and lactated Ringer's until tolerating regular diet Regular diet Vitals per unit routine Ibuprofen and Tylenol for pain control Assist with breast-feeding as needed Continue to monitor lochia Anticipate discharge home on day #2 Shukri Arias MD 9:10 AM 11/07/2019 - Plan Plan:: Refer to observation for spontaneous rupture of membranes Start Pitocin for augmentation of labor due to contractions being irregular Continuous monitoring Place IV and have Lactated Ringer's at 125 ml/hr May have small amounts of regular diet Activity as tolerated May have epidural as desired Plans to breast-feed after delivery Start on ampicillin 2 g now and have 1 g every 4 hours after for GBS prophylaxis Anticipate vaginal delivery unless otherwise indicated Shukri Arias MD 2:58 PM 11/06/2019
[2019-11-07] MEDS: Ibuprofen 600 MG Tab PO PRN ×2 (10:24→22:22)
[2019-11-07] MEDS: Witch Hazel Medicated Pads 40/Jar TOP PRN (10:25)
[2019-11-07] MEDS: Prenatal Multivitamin with Calcium/Folic Acid/Iron Tab PO SCH (10:25)
[2019-11-07] MEDS: Acetaminophen 325 MG Tab PO PRN (19:08)
[2019-11-07] MEDS: Docusate Sodium 100 MG Cap PO PRN (20:12)
[2019-11-08] MEDS: Ibuprofen 600 MG Tab PO PRN ×2 (04:46→15:07)
[2019-11-08] MEDS: Prenatal Multivitamin with Calcium/Folic Acid/Iron Tab PO SCH (08:08)
[2019-11-08] MEDS: Acetaminophen 325 MG Tab PO PRN ×2 (08:10→19:10)
[2019-11-08] MEDS: Docusate Sodium 100 MG Cap PO PRN ×2 (08:12→19:44)
--- NOTE | 2019-11-08 08:34 | PCM.SN.2 ---
- Free Text/Narrative Note: Post Progress Note PPD #1 Subjective: Doing well overall. Ambulating without difficulty. Reports that she is having some hip and pelvic pain similar to what she was having prior to delivery. She states that this is most likely due to previous injuries and laxity in her hip joints. Lochia minimal. Voiding without difficulty. Tolerating regular diet without nausea or vomiting. Pain controlled with oral medications. Breast- feeding with minimal difficulty. Objective: Vitals: Vital Signs - 24 hr 11/07/19 11/07/19 11/07/19 12:13 15:00 20:07 Temperature 36.9 C 36.9 C 36.7 C Pulse, 88 91 86 Peripheral Respiratory 16 16 16 Rate Blood Pressure 129/67 131/75 129/67 O2 Sat by Pulse 94 L 98 98 Oximetry 11/08/19 11/08/19 03:28 04:20 Temperature 36.7 C 36.8 C Pulse, 76 91 Peripheral Respiratory 16 15 Rate Blood Pressure 130/49 L 122/55 L O2 Sat by Pulse 96 98 Oximetry Physical Exam General: Alert and oriented, no acute distress Lungs: Clear to auscultation bilaterally Heart: Regular rate and rhythm Abdomen: Soft, minimal appropriate tenderness, non-distended, fundus midline, nontender, and 1 fingerbreadth below the umbilicus Extremities: Trace edema in bilateral lower extremities to ankles ASSESSMENT: 24-year-old female -0-0-1 s/p vacuum-assisted vaginal delivery PPD #1, complicated by GBS positive and hip and pelvic pain throughout dated to previous injuries PLAN: Doing well Breast-feeding with minimal difficulty. Assist as needed Lochia minimal. Continue to monitor for appropriate lochia. Continue routine care Anticipate discharge home tomorrow Shukri Arias MD 8:34 AM 11/08/2019
--- NOTE | 2019-11-08 11:11 | PCM48HPAN ---
Post Anesthesia Note - EVALUATION WITHIN 48HRS OF ANESTHETIC Vital Signs in Normal Range: Yes Patient Participated in Evaluation: Yes Respiratory Function Stable: Yes Airway Patent: Yes Cardiovascular Function Stable: Yes Hydration Status Stable: Yes Pain Control Satisfactory: Yes Nausea and Vomiting Control Satisfactory: Yes Mental Status Recovered: Yes Vital Signs: Last Vital Signs Temp 36.8 C 11/08/19 04:20 Pulse 91 11/08/19 04:20 Resp 15 11/08/19 04:20 BP 122/55 L 11/08/19 04:20 Pulse Ox 98 11/08/19 04:20
[2019-11-09] MEDS: Ibuprofen 600 MG Tab PO PRN (03:15)
--- NOTE | 2019-11-09 07:04 | PCM.DCSUM1 ---
Discharge Summary - Hospital Course Free Text/Narrative:: [facility] LIVE L/D Delivery Note Patient Name: JAMARI ROSE Date of : 89 Patient Status: Inpatient Attending Provider: Shukri Arias Date: 11/07/19 09:10 Initialization Date: 11/07/19 09:10 L & D Note - General Info Date of Service: 11/07/19 Mother's Due Date: 11/11/19 - Delivery Note Labor: Augmented by ARM, Augmented by Oxytocin Delivery Outcome: Livebirth Delivery Method: Spontaneous Vaginal Delivery-Single Infant Delivery Mode: Vacuum Extraction Presentation: Direct Occiput Posterior Nuchal Cord: None Prep: Povidone-Iodine (Betadine Anesthesia Type: Epidural, Local Anesthetic: Lidocaine (Xylocaine) 1% Plain Local Anesthetic Volume: Other (20 mL) Amniotic Fluid Description: Clear Episiotomy Type: None Laceration: 2nd Degree (midline perineal, repaired with 3-0 Vicryl) Placenta: Spontaneous, Manual Removal (of small portions of retained amniotic sac) Cord: 3 Vessels Estimated Blood Loss: 400 Resuscitation Needed: No [place]: Bulb Syringe, Stimulated, Warmed, [place] Used Provider: Shukri Arias Score 1 min: 9 Score 5 min: 9 Second Stage Interventions: Reports: Pushing Effectively, Pushing, Pulls Own Legs Back, Pushing, Stirrups/Leg Supports Delivery Comments (Free Text/Narrative):: Stage I: Dina Rose (Alexandra) was admitted for spontaneous rupture membranes with a positive AmniSure test from exam in the clinic. On admission her cervix was dilated to 3.5 cm. She was GBS positive and was started on ampicillin for GBS prophylaxis. She received a total of 5 doses prior to delivery. She was started on Pitocin for induction of labor. On evaluation she had a forebag noted and this was ruptured with an [place] with return of clear fluid. She was given an epidural for anesthesia. She progressed to complete and pushing Stage II: She was pushing for approximately 3 hours at which time she began to have decreased amount of maternal effort and felt like she was not able to complete delivery herself. She was counseled on her options including vacuum assisted vaginal delivery. She was counseled on the risks and benefits of a vacuum assisted delivery and she stated understanding. She desired to proceed with a vacuum-assisted vaginal delivery. The station was at +3. position was felt to be right occiput posterior. A boswell cup Kiwi type extractor was applied to the infant's head and care was taken to not incorporate any of the maternal vaginal tissue between the cup and the head. Suction was applied to a level of 550 mmHg. Traction was applied and over the course of 1 contraction the head was brought to +4 station. There was 1 pop off at this time. Decision was made to switch to a boswell type mechanical suction extractor. This was applied to the head and suction was applied to 600 mmHg. Over the course of 1 additional contraction and maternal pushing the head was able to be delivered. The vacuum extractor was applied for a total of 1 minute prior to delivery. There was 1 total pop-off during use of the vacuum extractor. On 11/07/2019 she had a vacuum-assisted vaginal delivery of a live female infant at 08:08. Apgars of 9 & 9. Weight of 3450 g (7 lbs 9.7 oz). Length of 21.5 inches. There was no nuchal cord. was delivered in direct occiput posterior position. The cord was doubly clamped and cut by father the . Infant was placed on mother's abdomen. Stage III: She had a spontaneous delivery of a mostly intact placenta in [place] presentation. There was small portions of remaining amniotic sac on exam and these were removed manually and with ring forceps. On bimanual exam the entirety of the placenta and amniotic sac portions were felt to have been completely removed. Three vessel cord. She was given pitocin and fundal massage. She had a second-degree midline perineal laceration that was repaired with 3-0 Vicryl. The external anal sphincter was examined and noted to be intact without any injury to the muscle capsule. Mom and baby were stable to recovery. EBL of 400 mL. Shukri Arias MD 9:10 AM 11/07/2019 Vacuum Extractor Progress Note - Alternative Labor Strategies Considered Alternative Labor Strategies Considered:: Reports: Yes Strategies Considered:: Reports: Contraction Intensity Adequate, Empty Bladder, Rest Indications Considered:: Reports: Yes Indications:: Reports: Shortening of 2nd Stage for Maternal Benefit (Poor maternal expulsive efforts) Time Out:: Reports: Yes - Patient Prepared Patient Prepared:: Reports: Yes Informed Consent:: Reports: Verbal Risks: Reports: Yes Risks Include:: Reports: Laceration, Shoulder Dystocia, Maternal Injury Anesthesia/Analgesia Adequate:: Reports: Yes - Probability of Success High Probability of Success:: Reports: Yes Weight Estimated:: Reports: AGA Patient Diabetic:: Reports: No Pelvis Adequate:: Reports: Yes Position:: Right occiput posterior Asynclitic:: Reports: No Station:: +3 - Application Time Maximum Application Time & Number of Pop-Offs Predetermined:: Reports: Yes Maximum Pressure Maintained in Green Zone (cm Hg):: 600 Total Application Time (min): *max=20min: 1 Number of Times Cup Disengaged:: 1 Type of Vacuum Used:: Reports: Cup: Boswell type Vacuum Extraction: Successful - Exit Strategy Exit strategy available:: Reports: Yes and resuscitation teams readily available:: Reports: Yes - General Info Date of Service: 11/07/19 - Patient Data Vitals - Most Recent: Last Vital Signs Temp 36.9 C 11/06/19 13:15 Pulse 119 H 11/06/19 13:15 Resp 20 11/06/19 13:15 BP 133/72 11/06/19 13:15 Pulse Ox Weight - Most Recent: 118.388 kg I&O - Last 24 Hours: Intake & Output 11/06/19 11/07/19 11/07/19 22:59 06:59 14:59 Intake Total 240 4500 Output Total 375 400 Balance 240 -375 4100 Lab Results Last 24 Hours: Laboratory Results - last 24 hr 11/06/19 11/06/19 Range/Units 14:09 14:09 WBC 10.16 H (3.98-10.04) K/mm3 RBC 4.40 (3.98-5.22) M/mm3 Hgb 13.0 (11.2-15.7) gm/dl Hct 40.4 (34.1-44.9) % MCV 91.8 (79.4-94.8) fl MCH 29.5 (25.6-32.2) pg MCHC 32.2 (32.2-35.5) g/dl RDW Std Deviation 45.6 (36.4-46.3) fL Plt Count 246 (182-369) K/mm3 MPV 10.2 (9.4-12.3) fl Neut % (Auto) 73.3 H (34.0-71.1) % Lymph % (Auto) 18.9 L (19.3-51.7) % [place] % (Auto) 6.4 (4.7-12.5) % Eos % (Auto) 0.7 (0.7-5.8) Baso % (Auto) 0.2 (0.1-1.2) % Neut # (Auto) 7.45 H (1.56-6.13) K/mm3 Lymph # (Auto) 1.92 (1.18-3.74) K/mm3 [place] # (Auto) 0.65 H (0.24-0.36) K/mm3 Eos # (Auto) 0.07 (0.04-0.36) K/mm3 Baso # (Auto) 0.02 (0.01-0.08) K/mm3 RPR Non-reactive (NONREACTIVE) Med Orders - Current: Current Medications Acetaminophen (Tylenol) 650 mg PO Q6H PRN PRN Reason: mild pain or fever Benzocaine/Menthol (Dermoplast Pain Relief [place]) 0 gm TOP ASDIRECTED PRN PRN Reason: Perineal Comfort Measure Docusate Sodium (Colace) 100 mg PO BID PRN PRN Reason: Constipation Hydrocortisone Acetate (Anucort-Hc) 25 mg RECTAL BID PRN PRN Reason: Hemorrhoid pain Oxytocin/Lactated Ringer's (Pitocin In Lr 10 Units/1,000 Ml) 10 unit in 1,000 mls @ 100 mls/hr IV TITRATE STELLA; Protocol Ibuprofen (Motrin) 600 mg PO Q6H PRN PRN Reason: Mild pain or fever Magnesium Hydroxide (Milk Of Magnesia) 30 ml PO BEDTIME PRN PRN Reason: Constipation Prenat Multivit/Nurse Technician/Iron/Folic Ac ( Plus Iron) 1 each PO DAILY STELLA Reid (Tucks) 1 pad TOP ASDIRECTED PRN PRN Reason: Perineal Comfort Measure Discontinued Medications Acetaminophen (Tylenol) 650 mg PO Q6H PRN PRN Reason: Pain (Mild 1-3) and fever Calcium Carbonate/Glycine (Tums) 1,000 mg PO Q2H PRN PRN Reason: Indigestion Last Admin: 11/07/19 05:55 Dose: 1,000 mg Ephedrine Sulfate (Ephedrine Sulfate) 5 mg IVPUSH ASDIRECTED PRN PRN Reason: Hypotension Fentanyl (Sublimaze) 100 mcg EPIDUR Q3H PRN PRN Reason: Pain Last Admin: 11/06/19 21:22 Dose: 100 mcg Fentanyl/Bupivacaine HCl (Fentanyl/Bupivacaine/Ns 2 Mcg-0.125% 100 Ml) 100 ml EPIDUR ASDIRECTED STELLA Last Admin: 11/06/19 21:04 Dose: 100 ml Ampicillin Sodium 2 gm/ Sodium (Chloride) 100 mls @ 200 mls/hr IV ONETIME ONE Stop: 11/06/19 14:20 Last Admin: 11/06/19 14:08 Dose: 200 mls/hr Ampicillin Sodium 1 gm/ Sodium (Chloride) 100 mls @ 200 mls/hr IV Q4H STELLA Last Admin: 11/07/19 05:56 Dose: 200 mls/hr Lactated Ringer's (Ringers, Lactated) 1,000 mls @ 100 mls/hr IV ASDIRECTED STELLA Last Admin: 11/07/19 07:07 Dose: 100 mls/hr Oxytocin 20 unit/ Lactated (Ringer's) 1,002 mls @ 6.01 mls/hr IV TITRATE STELLA; Protocol Oxytocin/Lactated Ringer's (Pitocin In Lr 10 Units/1,000 Ml) 10 unit in 1,000 mls @ 100 mls/hr IV .CONTINUOUS STELLA Oxytocin/Lactated Ringer's (Pitocin In Lr 10 Units/1,000 Ml) 10 unit in 1,000 mls @ 12 mls/hr IV TITRATE STELLA; Protocol Last Titration: 11/07/19 05:15 Dose: 6 munits/min, 36 mls/hr Phenylephrine HCl 1 mg/ Sodium (Chloride) 10.1 mls @ 1 mls/sec IV TITRATE STELLA; Protocol Lidocaine HCl (Xylocaine 1%) Confirm Administered Dose 50 ml .ROUTE .STK-MED ONE Stop: 11/07/19 07:52 Nalbuphine HCl (Nubain) 10 mg IVPUSH Q2H PRN PRN Reason: Pain Last Admin: 11/06/19 20:19 Dose: 10 mg Ondansetron HCl (Zofran) 4 mg IVPUSH ONETIME PRN PRN Reason: Nausea/Vomiting Sodium Chloride (Saline Flush) 10 ml FLUSH ASDIRECTED PRN PRN Reason: Keep Vein Open - Problem List & Annotations (1) 39 weeks gestation of SNOMED Code(s): 29019164 Code(s): Z3A.39 - 39 WEEKS GESTATION OF Status: Acute Current Visit: Yes (2) GBS (group B Streptococcus carrier), +RV culture, currently SNOMED Code(s): 3471073197285, 090650802, 9418469483587 Code(s): O99.820 - STREPTOCOCCUS B CARRIER STATE COMPLICATING Status: Acute Current Visit: Yes (3) Obesity affecting SNOMED Code(s): 713845421378, 425086667807 Code(s): O99.210 - OBESITY COMPLICATING , UNSPECIFIED TRIMESTER Status: Acute Current Visit: Yes (4) Vaginal delivery SNOMED Code(s): 309164636 Code(s): O80 - ENCOUNTER FOR FULL-TERM UNCOMPLICATED DELIVERY Status: Acute Current Visit: Yes (5) Vacuum extractor delivery, delivered SNOMED Code(s): 874202698 Code(s): O66.5 - ATTEMPTED APPLICATION OF VACUUM EXTRACTOR AND FORCEPS Status: Acute Current Visit: Yes (6) Second degree perineal laceration during delivery SNOMED Code(s): 8324587 Code(s): O70.1 - SECOND DEGREE PERINEAL LACERATION DURING DELIVERY Status: Acute Current Visit: Yes - Problem List Review Problem List Initiated/Reviewed/Updated: Yes - My Orders Last 24 Hours: My Active Orders 11/06/19 13:51 Activity as Tolerated [RC] PFP Communication Order [RC] ASDIRECTED Notify Provider [RC] PFP Notify Provider [RC] PRN Resuscitation Status Routine 11/06/19 13:53 Notify Provider Vital Signs [RC] PRN 11/07/19 09:09 Patient Status [ADT] Routine Activity as Tolerated [RC] PER UNIT ROUTINE May Shower [RC] ASDIRECTED Notify Provider Vital Signs [RC] ASDIRECTED Vital Signs [RC] ASDIRECTED Acetaminophen [Tylenol] 650 mg PO Q6H PRN Benzocaine/Menthol [Dermoplast Pain Relief [place]] See Dose Instructions TOP ASDIRECTED PRN Docusate Sodium [Colace] 100 mg PO BID PRN Hydrocortisone Acetate [Anucort-HC] 25 mg RECTAL BID PRN Ibuprofen [Motrin] 600 mg PO Q6H PRN Magnesium Hydroxide [Milk of Magnesia] 30 ml PO BEDTIME PRN Oxytocin/Lactated Ringers [Pitocin in LR 10 Units/1,000 ML] 10 unit in 1,000 ml IV TITRATE Vit with Ca/FA/Iron [ Plus Iron] 1 each PO DAILY witbenoit Jeanette [Tucks] 1 pad TOP ASDIRECTED PRN Assess Lochia [WOMSER] Per Unit Routine Assess Uterine Involution [WOMSER] Per Unit Routine Breast Pump [WOMSER] Per Unit Routine Heat Therapy [OM.PC] PRN Ice Therapy [OM.PC] Per Unit Routine Medication Administration Instruction [OM.PC] Routine Perineal Care [OM.PC] Per Unit Routine Peripheral IV Discontinue [OM.PC] Routine Sitz Bath [OM.PC] Per Unit Routine 11/07/19 Breakfast Regular Diet [DIET] 11/08/19 09:09 Heat Therapy [OM.PC] PRN - Assessment Assessment:: Admit to inpatient following vacuum-assisted vaginal delivery Continue Pitocin per unit protocol following delivery of placenta and lactated Ringer's until tolerating regular diet Regular diet Vitals per unit routine Ibuprofen and Tylenol for pain control Assist with breast-feeding as needed Continue to monitor lochia Anticipate discharge home on day #2 Shukri Arias MD 9:10 AM 11/07/2019 - Plan Plan:: Refer to observation for spontaneous rupture of membranes Start Pitocin for augmentation of labor due to contractions being irregular Continuous monitoring Place IV and have Lactated Ringer's at 125 ml/hr May have small amounts of regular diet Activity as tolerated May have epidural as desired Plans to breast-feed after delivery Start on ampicillin 2 g now and have 1 g every 4 hours after for GBS prophylaxis Anticipate vaginal delivery unless otherwise indicated Shukri Arias MD 2:58 PM 11/06/2019 HPI Initial Comments: [facility] LIVE L/D Delivery Note Patient Name: JAMARI ROSE Date of : 89 Patient Status: Inpatient Attending Provider: Shukri Arias Date: 11/07/19 09:10 Initialization Date: 11/07/19 09:10 L & D Note - General Info Date of Service: 11/07/19 Mother's Due Date: 11/11/19 - Delivery Note Labor: Augmented by ARM, Augmented by Oxytocin Delivery Outcome: Livebirth Infant Delivery Method: Spontaneous Vaginal Delivery-Single Infant Delivery Mode: Vacuum Extraction Presentation: Direct Occiput Posterior Nuchal Cord: None Prep: Povidone-Iodine (Betadine Anesthesia Type: Epidural, Local Anesthetic: Lidocaine (Xylocaine) 1% Plain Local Anesthetic Volume: Other (20 mL) Amniotic Fluid Description: Clear Episiotomy Type: None Laceration: 2nd Degree (midline perineal, repaired with 3-0 Vicryl) Placenta: Spontaneous, Manual Removal (of small portions of retained amniotic sac) Cord: 3 Vessels Estimated Blood Loss: 400 Resuscitation Needed: No [place]: Bulb Syringe, Stimulated, Warmed, [place] Used Provider: Shukri Arias Score 1 min: 9 Score 5 min: 9 Second Stage Interventions: Reports: Pushing Effectively, Pushing, Pulls Own Legs Back, Pushing, Stirrups/Leg Supports Delivery Comments (Free Text/Narrative):: Stage I: Dina Rose (Alexandra) was admitted for spontaneous rupture membranes with a positive AmniSure test from exam in the clinic. On admission her cervix was dilated to 3.5 cm. She was GBS positive and was started on ampicillin for GBS prophylaxis. She received a total of 5 doses prior to delivery. She was started on Pitocin for induction of labor. On evaluation she had a forebag noted and this was ruptured with an [place] with return of clear fluid. She was given an epidural for anesthesia. She progressed to complete and pushing Stage II: She was pushing for approximately 3 hours at which time she began to have decreased amount of maternal effort and felt like she was not able to complete delivery herself. She was counseled on her options including vacuum assisted vaginal delivery. She was counseled on the risks and benefits of a vacuum assisted delivery and she stated understanding. She desired to proceed with a vacuum-assisted vaginal delivery. The station was at +3. position was felt to be right occiput posterior. A boswell cup Kiwi type extractor was applied to the 's head and care was taken to not incorporate any of the maternal vaginal tissue between the cup and the head. Suction was applied to a level of 550 mmHg. Traction was applied and over the course of 1 contraction the head was brought to +4 station. There was 1 pop off at this time. Decision was made to switch to a boswell type mechanical suction extractor. This was applied to the head and suction was applied to 600 mmHg. Over the course of 1 additional contraction and maternal pushing the head was able to be delivered. The vacuum extractor was applied for a total of 1 minute prior to delivery. There was 1 total pop-off during use of the vacuum extractor. On 11/07/2019 she had a vacuum-assisted vaginal delivery of a live female infant at 08:08. Apgars of 9 & 9. Weight of 3450 g (7 lbs 9.7 oz). Length of 21.5 inches. There was no nuchal cord. was delivered in direct occiput posterior position. The cord was doubly clamped and cut by father the infant. Infant was placed on mother's abdomen. Stage III: She had a spontaneous delivery of a mostly intact placenta in [place] presentation. There was small portions of remaining amniotic sac on exam and these were removed manually and with ring forceps. On bimanual exam the entirety of the placenta and amniotic sac portions were felt to have been completely removed. Three vessel cord. She was given pitocin and fundal massage. She had a second-degree midline perineal laceration that was repaired with 3-0 Vicryl. The external anal sphincter was examined and noted to be intact without any injury to the muscle capsule. Mom and baby were stable to recovery. EBL of 400 mL. Shukri Arias MD 9:10 AM 11/07/2019 Vacuum Extractor Progress Note - Alternative Labor Strategies Considered Alternative Labor Strategies Considered:: Reports: Yes Strategies Considered:: Reports: Contraction Intensity Adequate, Empty Bladder, Rest Indications Considered:: Reports: Yes Indications:: Reports: Shortening of 2nd Stage for Maternal Benefit (Poor maternal expulsive efforts) Time Out:: Reports: Yes - Patient Prepared Patient Prepared:: Reports: Yes Informed Consent:: Reports: Verbal Risks: Reports: Yes Risks Include:: Reports: Laceration, Shoulder Dystocia, Maternal Injury Anesthesia/Analgesia Adequate:: Reports: Yes - Probability of Success High Probability of Success:: Reports: Yes Weight Estimated:: Reports: AGA Patient Diabetic:: Reports: No Pelvis Adequate:: Reports: Yes Position:: Right occiput posterior Asynclitic:: Reports: No Station:: +3 - Application Time Maximum Application Time & Number of Pop-Offs Predetermined:: Reports: Yes Maximum Pressure Maintained in [place] (cm Hg):: 600 Total Application Time (min): *max=20min: 1 Number of Times Cup Disengaged:: 1 Type of Vacuum Used:: Reports: Cup: Boswell type Vacuum Extraction: Successful - Exit Strategy Exit strategy available:: Reports: Yes and resuscitation teams readily available:: Reports: Yes - General Info Date of Service: 11/07/19 - Patient Data Vitals - Most Recent: Last Vital Signs Temp 36.9 C 11/06/19 13:15 Pulse 119 H 11/06/19 13:15 Resp 20 11/06/19 13:15 BP 133/72 11/06/19 13:15 Pulse Ox Weight - Most Recent: 118.388 kg I&O - Last 24 Hours: Intake & Output 11/06/19 11/07/19 11/07/19 22:59 06:59 14:59 Intake Total 240 4500 Output Total 375 400 Balance 240 -375 4100 Lab Results Last 24 Hours: Laboratory Results - last 24 hr 11/06/19 11/06/19 Range/Units 14:09 14:09 WBC 10.16 H (3.98-10.04) K/mm3 RBC 4.40 (3.98-5.22) M/mm3 Hgb 13.0 (11.2-15.7) gm/dl Hct 40.4 (34.1-44.9) % MCV 91.8 (79.4-94.8) fl MCH 29.5 (25.6-32.2) pg MCHC 32.2 (32.2-35.5) g/dl RDW Std Deviation 45.6 (36.4-46.3) fL Plt Count 246 (182-369) K/mm3 MPV 10.2 (9.4-12.3) fl Neut % (Auto) 73.3 H (34.0-71.1) % Lymph % (Auto) 18.9 L (19.3-51.7) % [place] % (Auto) 6.4 (4.7-12.5) % Eos % (Auto) 0.7 (0.7-5.8) Baso % (Auto) 0.2 (0.1-1.2) % Neut # (Auto) 7.45 H (1.56-6.13) K/mm3 Lymph # (Auto) 1.92 (1.18-3.74) K/mm3 [place] # (Auto) 0.65 H (0.24-0.36) K/mm3 Eos # (Auto) 0.07 (0.04-0.36) K/mm3 Baso # (Auto) 0.02 (0.01-0.08) K/mm3 RPR Non-reactive (NONREACTIVE) Med Orders - Current: Current Medications Acetaminophen (Tylenol) 650 mg PO Q6H PRN PRN Reason: mild pain or fever Benzocaine/Menthol (Dermoplast Pain Relief [place]) 0 gm TOP ASDIRECTED PRN PRN Reason: Perineal Comfort Measure Docusate Sodium (Colace) 100 mg PO BID PRN PRN Reason: Constipation Hydrocortisone Acetate (Anucort-Hc) 25 mg RECTAL BID PRN PRN Reason: Hemorrhoid pain Oxytocin/Lactated Ringer's (Pitocin In Lr 10 Units/1,000 Ml) 10 unit in 1,000 mls @ 100 mls/hr IV TITRATE STELLA; Protocol Ibuprofen (Motrin) 600 mg PO Q6H PRN PRN Reason: Mild pain or fever Magnesium Hydroxide (Milk Of Magnesia) 30 ml PO BEDTIME PRN PRN Reason: Constipation Prenat Multivit/[place]/Iron/Folic Ac ( Plus Iron) 1 each PO DAILY STELLA Reid ([place]) 1 pad TOP ASDIRECTED PRN PRN Reason: Perineal Comfort Measure Discontinued Medications Acetaminophen (Tylenol) 650 mg PO Q6H PRN PRN Reason: Pain (Mild 1-3) and fever Calcium Carbonate/Glycine (Tums) 1,000 mg PO Q2H PRN PRN Reason: Indigestion Last Admin: 11/07/19 05:55 Dose: 1,000 mg Ephedrine Sulfate (Ephedrine Sulfate) 5 mg IVPUSH ASDIRECTED PRN PRN Reason: Hypotension Fentanyl (Sublimaze) 100 mcg EPIDUR Q3H PRN PRN Reason: Pain Last Admin: 11/06/19 21:22 Dose: 100 mcg Fentanyl/Bupivacaine HCl (Fentanyl/Bupivacaine/Ns 2 Mcg-0.125% 100 Ml) 100 ml EPIDUR ASDIRECTED STELLA Last Admin: 11/06/19 21:04 Dose: 100 ml Ampicillin Sodium 2 gm/ Sodium (Chloride) 100 mls @ 200 mls/hr IV ONETIME ONE Stop: 11/06/19 14:20 Last Admin: 11/06/19 14:08 Dose: 200 mls/hr Ampicillin Sodium 1 gm/ Sodium (Chloride) 100 mls @ 200 mls/hr IV Q4H STELLA Last Admin: 11/07/19 05:56 Dose: 200 mls/hr Lactated Ringer's (Ringers, Lactated) 1,000 mls @ 100 mls/hr IV ASDIRECTED STELLA Last Admin: 11/07/19 07:07 Dose: 100 mls/hr Oxytocin 20 unit/ Lactated (Ringer's) 1,002 mls @ 6.01 mls/hr IV TITRATE STELLA; Protocol Oxytocin/Lactated Ringer's (Pitocin In Lr 10 Units/1,000 Ml) 10 unit in 1,000 mls @ 100 mls/hr IV .CONTINUOUS STELLA Oxytocin/Lactated Ringer's (Pitocin In Lr 10 Units/1,000 Ml) 10 unit in 1,000 mls @ 12 mls/hr IV TITRATE STELLA; Protocol Last Titration: 11/07/19 05:15 Dose: 6 munits/min, 36 mls/hr Phenylephrine HCl 1 mg/ Sodium (Chloride) 10.1 mls @ 1 mls/sec IV TITRATE STELLA; Protocol Lidocaine HCl (Xylocaine 1%) Confirm Administered Dose 50 ml .ROUTE .STK-MED ONE Stop: 11/07/19 07:52 Nalbuphine HCl (Nubain) 10 mg IVPUSH Q2H PRN PRN Reason: Pain Last Admin: 11/06/19 20:19 Dose: 10 mg Ondansetron HCl (Zofran) 4 mg IVPUSH ONETIME PRN PRN Reason: Nausea/Vomiting Sodium Chloride (Saline Flush) 10 ml FLUSH ASDIRECTED PRN PRN Reason: Keep Vein Open - Problem List & Annotations (1) 39 weeks gestation of SNOMED Code(s): 21054857 Code(s): Z3A.39 - 39 WEEKS GESTATION OF Status: Acute Current Visit: Yes (2) GBS (group B Streptococcus carrier), +RV culture, currently SNOMED Code(s): 8218955347106, 804828556, 5300490627821 Code(s): O99.820 - STREPTOCOCCUS B CARRIER STATE COMPLICATING Status: Acute Current Visit: Yes (3) Obesity affecting SNOMED Code(s): 976201390413, 467537798147 Code(s): O99.210 - OBESITY COMPLICATING , UNSPECIFIED TRIMESTER Status: Acute Current Visit: Yes (4) Vaginal delivery SNOMED Code(s): 845734752 Code(s): O80 - ENCOUNTER FOR FULL-TERM UNCOMPLICATED DELIVERY Status: Acute Current Visit: Yes (5) Vacuum extractor delivery, delivered SNOMED Code(s): 582755526 Code(s): O66.5 - ATTEMPTED APPLICATION OF VACUUM EXTRACTOR AND FORCEPS Status: Acute Current Visit: Yes (6) Second degree perineal laceration during delivery SNOMED Code(s): 1061710 Code(s): O70.1 - SECOND DEGREE PERINEAL LACERATION DURING DELIVERY Status: Acute Current Visit: Yes - Problem List Review Problem List Initiated/Reviewed/Updated: Yes - My Orders Last 24 Hours: My Active Orders 11/06/19 13:51 Activity as Tolerated [RC] PFP Communication Order [RC] ASDIRECTED Notify Provider [RC] PFP Notify Provider [RC] PRN Resuscitation Status Routine 11/06/19 13:53 Notify Provider Vital Signs [RC] PRN 11/07/19 09:09 Patient Status [ADT] Routine Activity as Tolerated [RC] PER UNIT ROUTINE May Shower [RC] ASDIRECTED Notify Provider Vital Signs [RC] ASDIRECTED Vital Signs [RC] ASDIRECTED Acetaminophen [Tylenol] 650 mg PO Q6H PRN Benzocaine/Menthol [Dermoplast Pain Relief [place]] See Dose Instructions TOP ASDIRECTED PRN Docusate Sodium [Colace] 100 mg PO BID PRN Hydrocortisone Acetate [Anucort-HC] 25 mg RECTAL BID PRN Ibuprofen [Motrin] 600 mg PO Q6H PRN Magnesium Hydroxide [Milk of Magnesia] 30 ml PO BEDTIME PRN Oxytocin/Lactated Ringers [Pitocin in LR 10 Units/1,000 ML] 10 unit in 1,000 ml IV TITRATE Vit with Ca/FA/Iron [ Plus Iron] 1 each PO DAILY maria de jesus carrilloeL [Tucks] 1 pad TOP ASDIRECTED PRN Assess Lochia [WOMSER] Per Unit Routine Assess Uterine Involution [WOMSER] Per Unit Routine Breast Pump [WOMSER] Per Unit Routine Heat Therapy [OM.PC] PRN Ice Therapy [OM.PC] Per Unit Routine Medication Administration Instruction [OM.PC] Routine Perineal Care [OM.PC] Per Unit Routine Peripheral IV Discontinue [OM.PC] Routine Sitz Bath [OM.PC] Per Unit Routine 11/07/19 Breakfast Regular Diet [DIET] 11/08/19 09:09 Heat Therapy [OM.PC] PRN - Assessment Assessment:: Admit to inpatient following vacuum-assisted vaginal delivery Continue Pitocin per unit protocol following delivery of placenta and lactated Ringer's until tolerating regular diet Regular diet Vitals per unit routine Ibuprofen and Tylenol for pain control Assist with breast-feeding as needed Continue to monitor lochia Anticipate discharge home on day #2 Shukri Arias MD 9:10 AM 11/07/2019 - Plan Plan:: Refer to observation for spontaneous rupture of membranes Start Pitocin for augmentation of labor due to contractions being irregular Continuous monitoring Place IV and have Lactated Ringer's at 125 ml/hr May have small amounts of regular diet Activity as tolerated May have epidural as desired Plans to breast-feed after delivery Start on ampicillin 2 g now and have 1 g every 4 hours after for GBS prophylaxis Anticipate vaginal delivery unless otherwise indicated Shukri Arias MD 2:58 PM 11/06/2019 Brief History: [facility] LIVE . L/D Delivery Note. [facility]: [id number]. Date of : Patient Status: Inpatient. Attending Provider: Shukri Ariascount Number: [id number]. Date: 11/07/19 09:10Initialization Date: 11/07/19 09:10. L & D Note. - General Info. Date of Service: 11/07/19. Mother's Due Date: . - Delivery Note. Labor: Augmented by ARM, Augmented by Oxytocin. Delivery Outcome: Livebirth. Infant Delivery Method: Spontaneous Vaginal Delivery-Single. Infant Delivery Mode: Vacuum Extraction. Presentation: Direct Occiput Posterior. Nuchal Cord: None. Prep: Povidone-Iodine (Betadine. Anesthesia Type: Epidural, Local. Anesthetic: Lidocaine (Xylocaine) 1% Plain. Local Anesthetic Volume: Other (20 mL). Amniotic Fluid Description: Clear. Episiotomy Type: None. Laceration: 2nd Degree (midline perineal, repaired with 3-0 Vicryl). Placenta: Spontaneous, Manual Removal (of small portions of retained amniotic sac). Cord: 3 Vessels. Estimated Blood Loss: 400. Resuscitation Needed: No. [place]: Bulb Syringe, Stimulated, Warmed, [place] Used. Provider: Shukri Arias. Score 1 min: 9. Score 5 min: 9. Second Stage Interventions: Reports: Pushing Effectively, Pushing, Pulls Own Legs Back, Pushing, Stirrups/Leg Supports. Delivery Comments (Free Text/Narrative):: Stage I: Dina Rose (Alexandra) was admitted for spontaneous rupture membranes with a positive AmniSure test from exam in the clinic. On admission her cervix was dilated to 3.5 cm. She was GBS positive and was started on ampicillin for GBS prophylaxis. She received a total of 5 doses prior to delivery. She was started on Pitocin for induction of labor. On evaluation she had a forebag noted and this was ruptured with an [place] with return of clear fluid. She was given an epidural for anesthesia. She progressed to complete and pushing. Stage II: She was pushing for approximately 3 hours at which time she began to have decreased amount of maternal effort and felt like she was not able to complete delivery herself. She was counseled on her options including vacuum assisted vaginal delivery. She was counseled on the risks and benefits of a vacuum assisted delivery and she stated understanding. She desired to proceed with a vacuum-assisted vaginal delivery. The station was at +3. position was felt to be right occiput posterior. A boswell cup Kiwi type extractor was applied to the infant's head and care was taken to not incorporate any of the maternal vaginal tissue between the cup and the head. Suction was applied to a level of 550 mmHg. Traction was applied and over the course of 1 contraction the head was brought to +4 station. There was 1 pop off at this time. Decision was made to switch to a boswell type mechanical suction extractor. This was applied to the head and suction was applied to 600 mmHg. Over the course of 1 additional contraction and maternal pushing the head was able to be delivered. The vacuum extractor was applied for a total of 1 minute prior to delivery. There was 1 total pop-off during use of the vacuum extractor. On she had a vacuum-assisted vaginal delivery of a live female infant at 08 :08. Apgars of 9 & 9. Weight of 3450 g (7 lbs 9.7 oz). Length of 21.5 inches. There was no nuchal cord. was delivered in direct occiput posterior position. The cord was doubly clamped and cut by father the . was placed on mother's abdomen. Stage III: She had a spontaneous delivery of a mostly intact placenta in [place] presentation. There was small portions of remaining amniotic sac on exam and these were removed manually and with ring forceps. On bimanual exam the entirety of the placenta and amniotic sac portions were felt to have been completely removed. Three vessel cord. She was given pitocin and fundal massage. She had a second-degree midline perineal laceration that was repaired with 3-0 Vicryl. The external anal sphincter was examined and noted to be intact without any injury to the muscle capsule. Mom and baby were stable to recovery. EBL of 400 mL. Shukri Arias MD. 9:10 AM. . Vacuum Extractor Progress Note. - Alternative Labor Strategies Considered. Alternative Labor Strategies Considered:: Reports: Yes. Strategies Considered:: Reports: Contraction Intensity Adequate, Empty Bladder, Rest. Indications Considered:: Reports: Yes. Indications:: Reports: Shortening of 2nd Stage for Maternal Benefit (Poor maternal expulsive efforts). Time Out:: Reports: Yes. - Patient Prepared. Patient Prepared:: Reports: Yes. Informed Consent:: Reports: Verbal. Risks: Reports: Yes. Risks Include: : Reports: Laceration, Shoulder Dystocia, Maternal Injury. Anesthesia/ Analgesia Adequate:: Reports: Yes. - Probability of Success. High Probability of Success:: Reports: Yes. Weight Estimated:: Reports: AGA. Patient Diabetic:: Reports: No. Pelvis Adequate:: Reports: Yes. Position:: Right occiput posterior. Asynclitic:: Reports: No. Station:: +3. - Application Time. Maximum Application Time & Number of Pop-Offs Predetermined:: Reports: Yes. Maximum Pressure Maintained in [place] (cm Hg):: 600. Total Application Time (min): *max=20min: 1. Number of Times Cup Disengaged:: 1. Type of Vacuum Used:: Reports: Cup: Boswell type. Vacuum Extraction: Successful. - Exit Strategy. Exit strategy available:: Reports: Yes. and resuscitation teams readily available:: Reports: Yes. - General Info. Date of Service: 11/07/19. - Patient Data. Vitals - Most Recent: Last Vital Signs. Temp 36.9 C 11/06/19 13:15. Pulse 119 H 11/06/19 13:15. Resp 20 11/06/19 13: 15. BP 133/72 11/06/19 13:15. Pulse Ox. Weight - Most Recent: 118.388 kg. I &O - Last 24 Hours: Intake & Output. 11/05/2004/. 22:5906:5914: 59. Intake [id number]. Output [id number]. [id number]. Lab Results Last 24 Hours: Laboratory Results - last 24 hr. 11/05/2004/13/20Range/ Units. 14:0914:09. WBC 10.16 H (3.98-10.04) K/mm3. RBC 4.40 (3.98-5.22) M/ mm3. Hgb 13.0 (11.2-15.7) gm/dl. Hct 40.4 (34.1-44.9) %. MCV 91.8 (79.4- 94.8) fl. MCH 29.5 (25.6-32.2) pg. MCHC 32.2 (32.2-35.5) g/dl. RDW Std Deviation 45.6 (36.4-46.3) fL. Plt Count 246 (182-369) K/mm3. MPV 10.2 (9.4- 12.3) fl. Neut % (Auto) 73.3 H (34.0-71.1) %. Lymph % (Auto) 18.9 L (19.3- 51.7) %. [place] % (Auto) 6.4 (4.7-12.5) %. Eos % (Auto) 0.7 (0.7-5.8). Baso % (Auto) 0.2 (0.1-1.2) %. Neut # (Auto) 7.45 H (1.56-6.13) K/mm3. Lymph # ( Auto) 1.92 (1.18-3.74) K/mm3. [place] # (Auto) 0.65 H (0.24-0.36) K/mm3. Eos # (Auto) 0.07 (0.04-0.36) K/mm3. Baso # (Auto) 0.02 (0.01-0.08) K/mm3. RPR Non -reactive (NONREACTIVE). Med Orders - Current: Current Medications. Acetaminophen (Tylenol) 650 mg PO Q6H PRN. PRN Reason: mild pain or fever. Benzocaine/Menthol (Dermoplast Pain Relief [place]) 0 gm TOP ASDIRECTED PRN. PRN Reason: Perineal Comfort Measure. Docusate Sodium (Colace) 100 mg PO BID PRN. PRN Reason: Constipation. Hydrocortisone Acetate (Anucort-Hc) 25 mg RECTAL BID PRN. PRN Reason: Hemorrhoid pain. Oxytocin/Lactated Ringer's ( Pitocin In Lr 10 Units/1,000 Ml) 10 unit in 1,000 mls @ 100 mls/hr IV TITRATE STELLA; Protocol. Ibuprofen (Motrin) 600 mg PO Q6H PRN. PRN Reason: Mild pain or fever. Magnesium Hydroxide (Milk Of Magnesia) 30 ml PO BEDTIME PRN. PRN Reason: Constipation. Prenat Multivit/Nurse Technician/Iron/Folic Ac ( Plus Iron) 1 each PO DAILY STELLA. Maria De Jesus Reid (Tucks) 1 pad TOP ASDIRECTED PRN. PRN Reason: Perineal Comfort Measure. Discontinued Medications. Acetaminophen ( Tylenol) 650 mg PO Q6H PRN. PRN Reason: Pain (Mild 1-3) and fever. Calcium Carbonate/Glycine (Tums) 1,000 mg PO Q2H PRN. PRN Reason: Indigestion. Last Admin: 11/07/19 05:55 Dose: 1,000 mg. Ephedrine Sulfate (Ephedrine Sulfate) 5 mg IVPUSH ASDIRECTED PRN. PRN Reason: Hypotension. Fentanyl (Sublimaze) 100 mcg EPIDUR Q3H PRN. PRN Reason: Pain. Last Admin: 11/06/19 21:22 Dose: 100 mcg. Fentanyl/Bupivacaine HCl (Fentanyl/Bupivacaine/Ns 2 Mcg-0.125% 100 Ml ) 100 ml EPIDUR ASDIRECTED STELLA. Last Admin: 11/06/19 21:04 Dose: 100 ml. Ampicillin Sodium 2 gm/ Sodium (Chloride) 100 mls @ 200 mls/hr IV ONETIME ONE. Stop: 11/06/19 14:20. Last Admin: 11/06/19 14:08 Dose: 200 mls/hr. Ampicillin Sodium 1 gm/ Sodium (Chloride) 100 mls @ 200 mls/hr IV Q4H STELLA. Last Admin: 11/07/19 05:56 Dose: 200 mls/hr. Lactated Ringer's (Ringers, Lactated) 1,000 mls @ 100 mls/hr IV ASDIRECTED STELLA. Last Admin: 11/07/19 07: 07 Dose: 100 mls/hr. Oxytocin 20 unit/ Lactated (Ringer's) 1,002 mls @ 6.01 mls/hr IV TITRATE STELLA; Protocol. Oxytocin/Lactated Ringer's (Pitocin In Lr 10 Units/1,000 Ml) 10 unit in 1,000 mls @ 100 mls/hr IV .CONTINUOUS STELLA. Oxytocin /Lactated Ringer's (Pitocin In Lr 10 Units/1,000 Ml) 10 unit in 1,000 mls @ 12 mls/hr IV TITRATE STELLA; Protocol. Last Titration: 11/07/19 05:15 Dose: 6 munits /min, 36 mls/hr. Phenylephrine HCl 1 mg/ Sodium (Chloride) 10.1 mls @ 1 mls/ sec IV TITRATE STELLA; Protocol. Lidocaine HCl (Xylocaine 1%) Confirm Administered Dose 50 ml .ROUTE .STK-MED ONE. Stop: 11/07/19 07:52. Nalbuphine HCl (Nubain) 10 mg IVPUSH Q2H PRN. PRN Reason: Pain. Last Admin: 11/06/19 20: 19 Dose: 10 mg. Ondansetron HCl (Zofran) 4 mg IVPUSH ONETIME PRN. PRN Reason : Nausea/Vomiting. Sodium Chloride (Saline Flush) 10 ml FLUSH ASDIRECTED PRN. PRN Reason: Keep Vein Open. - Problem List & Annotations. (1) 39 weeks gestation of . SNOMED Code(s): 94165201. Code(s): Z3A.39 - 39 WEEKS GESTATION OF Status: Acute Current Visit: Yes. (2) GBS (group B Streptococcus carrier), +RV culture, currently . SNOMED Code(s): 4003778649911, 488319445, 1206666267018. Code(s): O99.820 - STREPTOCOCCUS B CARRIER STATE COMPLICATING Status: Acute Current Visit: Yes. (3) Obesity affecting . SNOMED Code(s): 910610812559, 541460820578. Code( s): O99.210 - OBESITY COMPLICATING , UNSPECIFIED TRIMESTER Status: Acute Current Visit: Yes. (4) Vaginal delivery. SNOMED Code(s): 302251816. Code(s): O80 - ENCOUNTER FOR FULL-TERM UNCOMPLICATED DELIVERY Status: Acute Current Visit: Yes. (5) Vacuum extractor delivery, delivered. SNOMED Code(s): 428209002. Code(s): O66.5 - ATTEMPTED APPLICATION OF VACUUM EXTRACTOR AND FORCEPS Status: Acute Current Visit: Yes. (6) Second degree perineal laceration during delivery. SNOMED Code(s): 9013536. Code(s): O70.1 - SECOND DEGREE PERINEAL LACERATION DURING DELIVERY Status: Acute Current Visit: Yes. - Problem List Review. Problem List Initiated/Reviewed/Updated: Yes. - My Orders. Last 24 Hours: My Active Orders. 11/06/19 13:51. Activity as Tolerated [RC] PFP. Communication Order [RC] ASDIRECTED. Notify Provider [RC] PFP. Notify Provider [RC] PRN. Resuscitation Status Routine. 11/06/19 13:53. Notify Provider Vital Signs [RC] PRN. 11/07/19 09:09. Patient Status [ADT] Routine. Activity as Tolerated [RC] PER UNIT ROUTINE. May Shower [RC] ASDIRECTED. Notify Provider Vital Signs [RC] ASDIRECTED. Vital Signs [RC] ASDIRECTED. Acetaminophen [Tylenol] 650 mg PO Q6H PRN. Benzocaine/Menthol [ Dermoplast Pain Relief [place]] See Dose Instructions TOP ASDIRECTED PRN. Docusate Sodium [Colace] 100 mg PO BID PRN. Hydrocortisone Acetate [Anucort- HC] 25 mg RECTAL BID PRN. Ibuprofen [Motrin] 600 mg PO Q6H PRN. Magnesium Hydroxide [Milk of Magnesia] 30 ml PO BEDTIME PRN. Oxytocin/Lactated Ringers [Pitocin in LR 10 Units/1,000 ML] 10 unit in 1,000 ml IV TITRATE. Vit with Ca/FA/Iron [ Plus Iron] 1 each PO DAILY. witbenoit Jeanette [Tucks] 1 pad TOP ASDIRECTED PRN. Assess Lochia [WOMSER] Per Unit Routine. Assess Uterine Involution [WOMSER] Per Unit Routine. Breast Pump [WOMSER] Per Unit Routine. Heat Therapy [OM.PC] PRN. Ice Therapy [OM.PC] Per Unit Routine. Medication Administration Instruction [OM.PC] Routine. Perineal Care [OM.PC] Per Unit Routine. Peripheral IV Discontinue [OM.PC] Routine. Sitz Bath [OM.PC ] Per Unit Routine. 11/07/19 Breakfast. Regular Diet [DIET]. 11/08/19 09:09. Heat Therapy [OM.PC] PRN. - Assessment. Assessment:: Admit to inpatient following vacuum-assisted vaginal delivery. Continue Pitocin per unit protocol following delivery of placenta and lactated Ringer's until tolerating regular diet. Regular diet. Vitals per unit routine. Ibuprofen and Tylenol for pain control. Assist with breast-feeding as needed. Continue to monitor lochia. Anticipate discharge home on day #2. Shukri Arias MD. 9:10 AM. 11/06. - Plan. Plan:: Refer to observation for spontaneous rupture of membranes. Start Pitocin for augmentation of labor due to contractions being irregular. Continuous monitoring. Place IV and have Lactated Ringer's at 125 ml/hr. May have small amounts of regular diet. Activity as tolerated. May have epidural as desired. Plans to breast-feed after delivery. Start on ampicillin 2 g now and have 1 g every 4 hours after for GBS prophylaxis. Anticipate vaginal delivery unless otherwise indicated. Shukri Arias MD. 2:58 PM. 11/06/2019 Diagnosis: Stroke: No - Discharge Data Discharge Date: 05/16/20 Discharge Disposition: Home, Self-Care 01 Condition: Good - Referral to Home Health Primary Care Physician: Shukri Arias MD - Discharge Diagnosis/Problem(s) (1) 39 weeks gestation of SNOMED Code(s): 97799835 ICD Code: Z3A.39 - 39 WEEKS GESTATION OF Status: Acute Current Visit: Yes (2) GBS (group B Streptococcus carrier), +RV culture, currently SNOMED Code(s): 9705517008359, 071774340, 6953979108716 ICD Code: O99.820 - STREPTOCOCCUS B CARRIER STATE COMPLICATING Status: Acute Current Visit: Yes (3) Obesity affecting SNOMED Code(s): 820974958078, 731395247991 ICD Code: O99.210 - OBESITY COMPLICATING , UNSPECIFIED TRIMESTER Status: Acute Current Visit: Yes Qualifiers: Trimester: third trimester Qualified Code(s): O99.213 - Obesity complicating , third trimester (4) Second degree perineal laceration during delivery SNOMED Code(s): 4888909 ICD Code: O70.1 - SECOND DEGREE PERINEAL LACERATION DURING DELIVERY Status : Acute Current Visit: Yes (5) Vacuum extractor delivery, delivered SNOMED Code(s): 089347624 ICD Code: O66.5 - ATTEMPTED APPLICATION OF VACUUM EXTRACTOR AND FORCEPS Status: Acute Current Visit: Yes (6) Vaginal delivery SNOMED Code(s): 138735377 ICD Code: O80 - ENCOUNTER FOR FULL-TERM UNCOMPLICATED DELIVERY Status: Acute Current Visit: Yes - Patient Summary/Data Complications: none Consults: none Hospital Course: uneventful - Patient Instructions Diet: Usual Diet as Tolerated Driving: Do Not Drive (x48) Showering/Bathing: May Shower Notify Provider of: Fever, Increased Pain, Swelling and Redness, Drainage, Nausea and/or Vomiting - Discharge Plan *PRESCRIPTION DRUG MONITORING PROGRAM REVIEWED*: Not Applicable *COPY OF PRESCRIPTION DRUG MONITORING REPORT IN PATIENT CLAUDIA: Not Applicable Home Medications: Home Meds Aspirin [Lo-Dose Aspirin EC] 81 mg PO DAILY 11/06/19 [History] Doxylamine Succinate [Unisom] 25 mg PO DAILY PRN 11/06/19 [History] Lansoprazole [Prevacid] 15 mg PO DAILY 11/06/19 [History] Mv-Mn/Iron/FA/Herbal/Digestive [ One Tablet] 1 tab PO DAILY 11/06/19 [ History] Acetaminophen [Tylenol] 650 mg PO Q6H PRN tablet 11/09/19 [Rx] Docusate Sodium [Colace] 100 mg PO BID PRN cap 11/09/19 [Rx] Hydrocortisone Acetate [Anucort-HC] 25 mg RECTAL BID PRN supp 11/09/19 [Rx] Ibuprofen [Motrin] 600 mg PO Q6H PRN tablet 11/09/19 [Rx] Magnesium Hydroxide [Milk of Magnesia] 30 ml PO BEDTIME PRN cup 11/09/19 [Rx] Vit with Ca/FA/Iron [ Plus Iron] 1 each PO DAILY tablet [Rx] maria de jesus Reid [Tucks] 1 pad TOP ASDIRECTED PRN pad 11/09/19 [Rx] Referrals: hSukri Arias MD [Primary Care Provider] - (call Monday for appointment) - Discharge Summary/Plan Comment DC Time >30 min.: No - Patient Data Vitals - Most Recent: Last Vital Signs Temp 97.3 F 11/09/19 03:10 Pulse 80 11/09/19 03:10 Resp 18 11/09/19 03:10 BP 121/59 L 11/09/19 03:10 Pulse Ox 96 11/09/19 03:10 Weight - Most Recent: 261 lb I&O - Last 24 hours: Intake & Output 11/08/19 11/09/19 11/09/19 22:59 06:59 14:59 Intake Total 240 Balance 240 Med Orders - Current: Current Medications Acetaminophen (Tylenol) 650 mg PO Q6H PRN PRN Reason: mild pain or fever Last Admin: 11/08/19 19:10 Dose: 650 mg Benzocaine/Menthol (Dermoplast Pain Relief [place]) 0 gm TOP ASDIRECTED PRN PRN Reason: Perineal Comfort Measure Last Admin: 11/07/19 10:24 Dose: 1 gm Docusate Sodium (Colace) 100 mg PO BID PRN PRN Reason: Constipation Last Admin: 11/08/19 19:44 Dose: 100 mg Hydrocortisone Acetate (Anucort-Hc) 25 mg RECTAL BID PRN PRN Reason: Hemorrhoid pain Oxytocin/Lactated Ringer's (Pitocin In Lr 10 Units/1,000 Ml) 10 unit in 1,000 mls @ 100 mls/hr IV TITRATE STELLA; Protocol Ibuprofen (Motrin) 600 mg PO Q6H PRN PRN Reason: Mild pain or fever Last Admin: 11/09/19 03:15 Dose: 600 mg Magnesium Hydroxide (Milk Of Magnesia) 30 ml PO BEDTIME PRN PRN Reason: Constipation Prenat Multivit/[place]/Iron/Folic Ac ( Plus Iron) 1 each PO DAILY STELLA Last Admin: 11/08/19 08:08 Dose: 1 each Witch Jeanette (Tucks) 1 pad TOP ASDIRECTED PRN PRN Reason: Perineal Comfort Measure Last Admin: 11/07/19 10:25 Dose: 1 gm Discontinued Medications Acetaminophen (Tylenol) 650 mg PO Q6H PRN PRN Reason: Pain (Mild 1-3) and fever Bupivacaine HCl (Sensorcaine-Mpf 0.25%) 10 ml .ROUTE .STK-MED ONE Stop: 11/07/19 00:01 Calcium Carbonate/Glycine (Tums) 1,000 mg PO Q2H PRN PRN Reason: Indigestion Last Admin: 11/07/19 05:55 Dose: 1,000 mg Ephedrine Sulfate (Ephedrine Sulfate) 5 mg IVPUSH ASDIRECTED PRN PRN Reason: Hypotension Fentanyl (Sublimaze) 100 mcg EPIDUR Q3H PRN PRN Reason: Pain Last Admin: 11/06/19 21:22 Dose: 100 mcg Fentanyl/Bupivacaine HCl (Fentanyl/Bupivacaine/Ns 2 Mcg-0.125% 100 Ml) 100 ml EPIDUR ASDIRECTED [facility] Last Admin: 11/06/19 21:04 Dose: 100 ml Ampicillin Sodium 2 gm/ Sodium (Chloride) 100 mls @ 200 mls/hr IV ONETIME ONE Stop: 11/06/19 14:20 Last Admin: 11/06/19 14:08 Dose: 200 mls/hr Ampicillin Sodium 1 gm/ Sodium (Chloride) 100 mls @ 200 mls/hr IV Q4H [facility] Last Admin: 11/07/19 05:56 Dose: 200 mls/hr Lactated Ringer's (Ringers, Lactated) 1,000 mls @ 100 mls/hr IV ASDIRECTED [facility] Last Admin: 11/07/19 07:07 Dose: 100 mls/hr Oxytocin 20 unit/ Lactated (Ringer's) 1,002 mls @ 6.01 mls/hr IV TITRATE STELLA; Protocol Oxytocin/Lactated Ringer's (Pitocin In Lr 10 Units/1,000 Ml) 10 unit in 1,000 mls @ 100 mls/hr IV .CONTINUOUS STELLA Oxytocin/Lactated Ringer's (Pitocin In Lr 10 Units/1,000 Ml) 10 unit in 1,000 mls @ 12 mls/hr IV TITRATE STELLA; Protocol Last Titration: 11/07/19 05:15 Dose: 6 munits/min, 36 mls/hr Phenylephrine HCl 1 mg/ Sodium (Chloride) 10.1 mls @ 1 mls/sec IV TITRATE STELLA; Protocol Lidocaine HCl (Xylocaine 1%) Confirm Administered Dose 50 ml .ROUTE .[facility] ONE Stop: 11/07/19 07:52 Last Admin: 11/07/19 09:16 Dose: 50 ml Nalbuphine HCl (Nubain) 10 mg IVPUSH Q2H PRN PRN Reason: Pain Last Admin: 11/06/19 20:19 Dose: 10 mg Ondansetron HCl (Zofran) 4 mg IVPUSH ONETIME PRN PRN Reason: Nausea/Vomiting Sodium Chloride (Saline Flush) 10 ml FLUSH ASDIRECTED PRN PRN Reason: Keep Vein Open
[2019-11-09] MEDS: Acetaminophen 325 MG Tab PO PRN (07:33)
[2019-11-09 09:53] VITALS: BP 123/72; PULSE 86
[2019-11-09] MEDS: Witch Hazel Medicated Pads 40/Jar TOP PRN (10:10)
[2019-11-09] MEDS: Prenatal Multivitamin with Calcium/Folic Acid/Iron Tab PO SCH (10:10)
== END 2019-11-09 12:04 | disposition home or self-care (01) | DRG 560 ==
LOC: JD.OB 12:47 → OBSVTOIN 11-07 08:00 → JD.MS 11-07 08:24 → JD.OB 11-07 12:00
PROVIDERS: ADMIT Obstetrics & Gynecology; ATTEND Obstetrics & Gynecology
PROC: 10D07Z6 Extraction of Products of Conception, Vacuum, Via Natural or Artificial Opening (ICD-10-PCS; principal; 2019-11-07)
PROC: 10907ZC Drainage of Amniotic Fluid, Therapeutic from Products of Conception, Via Natural or Artificial Opening (ICD-10-PCS; 2019-11-07)
PROC: 3E033VJ Introduction of Other Hormone into Peripheral Vein, Percutaneous Approach (ICD-10-PCS; 2019-11-07)
PROC: 0KQM0ZZ Repair Perineum Muscle, Open Approach (ICD-10-PCS; 2019-11-07)
PROC: 3E0R3BZ Introduction of Anesthetic Agent into Spinal Canal, Percutaneous Approach (ICD-10-PCS; 2019-11-07)
PROC: 00HU33Z Insertion of Infusion Device into Spinal Canal, Percutaneous Approach (ICD-10-PCS; 2019-11-07)
DX: O99.824 Streptococcus B carrier state complicating childbirth (principal); O99.214 Obesity complicating childbirth; E66.9 Obesity, unspecified; O70.1 Second degree perineal laceration during delivery; Z3A.39 39 weeks gestation of pregnancy; Z37.0 Single live birth
CPT/HCPCS: 01967; 36415; 51701; 51702; 59025; 59409; 85025; 86592; A9270-GY; J0290; J2001; J2300; J2590; J3010; J3490; J7050; J7120

== ENCOUNTER 2023-03-19 07:00 | Inpatient (IN) | payer BC ==
[~2023-03-19 07:00] MED LIST: Bupivacaine 0.25% 10 ML SDV ONE
[2023-03-19] MEDS ORDERED: Sodium Chloride 0.9% 10 ML Syringe FLUSH PRN (07:22)
[2023-03-19] MEDS ORDERED: Lidocaine 1% 50 ML MDV INJECT ONE (07:22)
[2023-03-19] MEDS ORDERED: Nalbuphine 10 MG/0.5 ML Syringe IVPUSH PRN (07:22)
[2023-03-19] MEDS ORDERED: Ondansetron 4 MG/2 ML SDV IVPUSH PRN (07:22)
[2023-03-19] MEDS ORDERED: Oxytocin/Lactated Ringers 10 UNIT/1,000 ML BAG IV SCH ×2 (07:30)
[2023-03-19 07:45] LABS: BASOPHILS PERCENT AUTO 0.4 % (0.0-1.0); EOSINOPHILS ABSOLUTE AUTO 0.1 K/mm3 (0.0-0.4); EOSINOPHILS PERCENT AUTO 1.2 % (0.0-6.0); HEMATOCRIT 37.3 % (37.0-47.0); HEMOGLOBIN 12.3 gm/dl (12.0-16.0); IMMATURE GRAN ABSOLUTE AUTO 0.05 K/mm3 (0.00-0.05); IMMATURE GRAN PERCENT AUTO 0.5 % (0.0-0.4); LYMPHOCYTES ABSOLUTE AUTO 2.8 K/mm3 (1.0-4.8); LYMPHOCYTES PERCENT AUTO 29.2 % (24.0-44.0); MEAN CORPUSCULAR HEMOGLOBIN 29.6 pg (28.0-32.0); MEAN CORPUSCULAR VOLUME 89.7 fl (83.0-99.0); MEAN PLATELET VOLUME 9.5 fl (9.4-12.3); MONOCYTES ABSOLUTE AUTO 0.5 K/mm3 (0.0-0.8); MONOCYTES PERCENT AUTO 5.2 % (0.0-8.0); NEUTROPHILS PERCENT AUTO 63.5 % (41.0-71.0); PLATELET COUNT,PLT 251 K/mm3 (150-400); RED BLOOD CELL COUNT 4.16 M/mm3 (4.10-5.30); WHITE BLOOD CELL COUNT,WBC 9.49 K/mm3 (3.9-11.3)
[2023-03-19] MEDS ORDERED: Sodium Chloride 0.9% 10 ML Syringe FLUSH SCH (09:00)
[2023-03-19] MEDS: Lactated Ringers 1,000 ML IV SCH ×2 (09:17→13:56)
[2023-03-19] MEDS ORDERED: Calcium Carbonate 500 MG Tab.Chew PO PRN (11:40)
[2023-03-19] MEDS ORDERED: fentaNYL 100 MCG/2 ML SDV EPIDUR PRN (12:17)
[2023-03-19] MEDS ORDERED: Bupivacaine/fentaNYL/NS 100 ML Bag EPIDUR PRN (12:17)
[2023-03-19] MEDS ORDERED: diphenhydrAMINE 50 MG/ML SDV IVPUSH PRN (12:17)
[2023-03-19] MEDS ORDERED: ePHEDrine 50 MG/ML SDV IVPUSH PRN (12:17)
[2023-03-19] MEDS ORDERED: Docusate Sodium 100 MG Cap PO PRN (16:03)
[2023-03-19] MEDS ORDERED: Witch Hazel Medicated Pads 40/Jar TOP PRN (16:03)
[2023-03-19] MEDS ORDERED: Benzocaine/Menthol 20%-0.5% Spray 78 GM Cannister TOP PRN (16:03)
[2023-03-20] MEDS: Ibuprofen 600 MG Tab PO PRN ×2 (00:07→07:35)
[2023-03-20] MEDS: Acetaminophen 325 MG Tab PO PRN ×2 (09:08→13:09)
[2023-03-20 12:47] VITALS: BP 120/78; PULSE 65
== END 2023-03-20 16:47 | disposition home or self-care (01) | DRG 560 ==
LOC: JD.OB 07:00 → OBSVTOIN 15:23 → JD.OB 15:24
PROVIDERS: ADMIT Obstetrics & Gynecology; ATTEND Obstetrics & Gynecology
PROC: 10E0XZZ Delivery of Products of Conception, External Approach (ICD-10-PCS; principal; 2023-03-19)
PROC: 10907ZC Drainage of Amniotic Fluid, Therapeutic from Products of Conception, Via Natural or Artificial Opening (ICD-10-PCS; 2023-03-19)
PROC: 3E033VJ Introduction of Other Hormone into Peripheral Vein, Percutaneous Approach (ICD-10-PCS; 2023-03-19)
PROC: 3E0R3BZ Introduction of Anesthetic Agent into Spinal Canal, Percutaneous Approach (ICD-10-PCS; 2023-03-19)
PROC: 00HU33Z Insertion of Infusion Device into Spinal Canal, Percutaneous Approach (ICD-10-PCS; 2023-03-19)
DX: O32.1XX0 Maternal care for breech presentation, not applicable or unspecified (principal); O69.81X0 Labor and delivery complicated by cord around neck, without compression, not applicable or unspecified; O36.5930 Maternal care for other known or suspected poor fetal growth, third trimester, not applicable or unspecified; Z37.0 Single live birth; Z3A.39 39 weeks gestation of pregnancy; Z88.0 Allergy status to penicillin
CPT/HCPCS: 36415; 51702; 59025; 59409; 85025; 86592; 86850; 86900; 86901; A9270-GY; J2405; J2590; J3490; J7120